=== PATIENT | male | born 1960 | race Caucasian/White ===

== ENCOUNTER 2016-12-20 11:20 | Inpatient (IN) | payer OTHER ==
[~2016-12-20] VITALS: Ht 167.6 cm; Wt 94.3 kg
[2016-12-20] VITALS (14 sets, daily range): BP systolic 114–159; BP diastolic 74–111; PULSE 66–97; TEMP 36.8–37.2; O2SAT 91–98; Ht 167.6 cm; Wt 94.3 kg
[2016-12-20] MEDS: SODIUM CHLORIDE 0.9% 1000ML 1,000 ML IV SCH ×2 (11:21→15:34)
[2016-12-20 11:53] LABS: BASO % 0.4 %; BASO ABS # 0.04 K/uL (0-0.2); COMPLETE YES; EOS % 1.1 %; HEMATOCRIT 46.6 % (42-52); IG% 0.3 %; LYMPH % 13.7 %; LYMPH ABS # 1.44 K/uL (1.2-3.4); MEAN CORPUSCULAR HEMOGLOBIN 31.4 pg (25-34); MEAN CORPUSCULAR HGB CONC 36.5 g/dl (32-36); MEAN PLATELET VOLUME 11.4 fL (7.4-10.4); MONO % 5.2 %; NEUT % 79.3 %; PLATELET COUNT 181 K/uL (130-400); RED BLOOD COUNT 5.42 M/uL (4.7-6.1); WHITE BLOOD COUNT 10.48 K/uL (4.8-10.8)
[2016-12-20 12:09] LABS: BLOOD UREA NITROGEN 12 mg/dl (7-18); BUN/CREATININE RATIO 11.5 (10-20); CALCIUM 9.5 mg/dl (8.5-10.1); CARBON DIOXIDE 29 mmol/L (21-32); CHLORIDE 102 mmol/L (98-107); GLUCOSE 129 mg/dl (70-99); INR 1.1 (0.9-1.1); POTASSIUM 3.9 mmol/L (3.5-5.1); PROTHROMBIN TIME (PATIENT) 11.7 SECONDS (9.0-12.0); SODIUM 137 mmol/L (136-145)
[2016-12-20 12:13] LABS: CKMB/CK RATIO 1.4 (0-3.0)
[2016-12-20] MEDS ORDERED: DILTIAZEM BOLUS / DRIP IV STA (12:55)
--- NOTE | 2016-12-20 13:02 | DIAGNOSTIC IMAGING REPORT ---
CT SCAN OF THE BRAIN WITHOUT IV CONTRAST CLINICAL HISTORY: Left-sided weakness. COMPARISON STUDY: No priors. TECHNIQUE: Unenhanced axial CT scan of the brain is performed from the vertex to the skull base. Automated dose control exposure was utilized. A dose lowering technique was utilized adhering to the principles of ALARA. CT DOSE: 537.48 mGy.cm FINDINGS: Brain parenchyma: There is a focus of left frontal encephalomalacia, likely related to remote infarct. There is no hemorrhage, mass effect, or evidence of acute territorial ischemia by CT criteria. Gonsalez-white matter is preserved. No extra-axial fluid collection is seen. Ventricles, sulci, cisterns: There is atherosclerotic calcification of the cavernous carotid arteries. Intracranial vasculature: The visualized intracranial vasculature at the skull base is normal in appearance. Calvarium: Unremarkable. Sinuses and mastoids: The visualized paranasal sinuses are clear. The mastoid air cells are well pneumatized. Orbits: The bony orbits are grossly intact. IMPRESSION: 1. There is no hemorrhage, mass effect, or evidence of acute territorial ischemia by CT criteria. 2. There is a focus of left frontal encephalomalacia, likely related to a remote infarct. Correlation clinical findings and the patient's medical history will be required. Electronically signed by: Nick López M.D. 12/20/2016 12:23 PM Dictated Date/Time: 12/20/2016 12:20 PM
--- NOTE | 2016-12-20 13:03 | DIAGNOSTIC IMAGING REPORT ---
SINGLE VIEW CHEST CLINICAL HISTORY: Strokelike symptoms. FINDINGS: An AP, portable, upright chest radiograph is obtained. No prior studies are available for comparison at the time of dictation. The cardiomediastinal silhouette is unremarkable. The lungs and pleural spaces are clear. No pneumothorax is seen. The bony thorax is grossly intact. IMPRESSION: No active disease in the chest. Electronically signed by: Nick López M.D. 12/20/2016 12:31 PM Dictated Date/Time: 12/20/2016 12:30 PM
[2016-12-20] MEDS ORDERED: HEPARIN 25000 UNIT/500 ML D5W ONE (13:07)
[2016-12-20] MEDS ORDERED: HEPARIN SOD 5000 UNIT/0.5 ML CARP ONE (13:08)
[2016-12-20] MEDS ORDERED: PHARMACIST DISCHARGE MED REC CONSULT PRN (13:15)
[2016-12-20] MEDS ORDERED: ALUMINUM/MAGNESIUM/SIMETH (MAALOX MAX) 30 ML UDC PO PRN (13:15)
[2016-12-20] MEDS ORDERED: ONDANSETRON INJ 2 MG/ML 2 ML VIAL IV PRN (13:15)
[2016-12-20] MEDS ORDERED: MAGNESIUM HYDROXIDE SUSP 30 ML UDC PO PRN (13:15)
[2016-12-20] MEDS ORDERED: DILTIAZEM HCL 5 MG/ML 5 ML VIAL IV SCH (13:15)
[2016-12-20] MEDS ORDERED: ACETAMINOPHEN 325 MG TAB PO PRN (13:15)
[2016-12-20] MEDS ORDERED: POLYETHYLENE (MIRALAX) 17 GM PACK PO PRN (13:15)
[2016-12-20] MEDS ORDERED: DILTIAZEM HCL INJ 125 MG in DEXTROSE 5% 100ML IV PRN ×2 (13:15→16:15)
--- NOTE | 2016-12-20 13:26 | History and Physical ---
History & Physical Date & Time of Service: Dec 20, 2016 at 13:24 Chief Complaint: Primary Care Physician: No Doctor, Assigned History of Present Illness Source: patient 56 y/o M who denies any significant medical history although he has not seen a physician in several years. The pt was at work when he became light-headed and then per his coworkers, exhibited slurred speech and a L facial droop. He describes L upper extremity weakness as well. His symptoms resolved after a few minutes and he is asymptomatic on arrival to the ER. Initial EKG reveals AF with a rate of ~115. He was not aware of palpitations and did not c/o any CP /SOB. A CT head indicates that he suffered a remote frontal CVA - he does not recall any associated symptoms. Past Medical/Surgical History NO known medical history Family History Atrial fibrillation Both parents due to heart disease. Social History Occasional ETOH - works at a [employer] Smoking Status: Never Smoker Allergies Coded Allergies: No Known Allergies (Unverified , 12/20/16) Home Medications No Active Prescriptions or Reported Meds Review of Systems Constitutional: No fever, No chills Eyes: No worsening of vision, No eye pain ENT: No hearing loss, No nasal symptoms Respiratory: No cough, No sputum, No wheezing Cardiovascular: No chest pain, No orthopnea, No PND Abdomen: No pain, No nausea, No vomiting Musculoskeletal: No joint pain Genitourinary - Male: No hematuria, No dysuria Neurologic: + weakness (L sided ), + problem reported (slurred speech, facial droop reported ), No memory loss Psychiatric: No depression symptoms Endocrine: No fatigue Hematologic / Lymphatic: No abnormal bleeding/bruising Allergic / Immunologic: No environmental allergies Physical Exam Vital Signs Date Time Temp Pulse Resp B/P (MAP) Pulse Ox O2 Delivery O2 Flow Rate FiO2 12/20/16 12:40 119 20 160/117 96 Room Air 12/20/16 11:33 119 12/20/16 11:30 36.6 111 20 138/111 98 Room Air General Appearance: WD/WN, no apparent distress, + pertinent finding (Pleasant , overweight, middle-aged male - no distress ) Head: normocephalic Eyes: normal inspection ENT: normal ENT inspection, pharynx normal Neck: supple, no JVD Respiratory/Chest: chest non-tender, lungs clear Cardiovascular: no gallop, no JVD, no murmur, + tachycardia, + irregularly irregular Abdomen/GI: normal bowel sounds, non tender, soft Back: normal inspection, no CVA tenderness 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, alert, normal mood/affect, normal reflexes, oriented x 3, + pertinent finding (Motor exam reveals a slight LUE pronator drift) Skin: normal color, warm/dry Diagnostics Laboratory Results Results Past 24 Hours Test 12/20/16 11:34 12/20/16 11:39 12/20/16 11:42 12/20/16 13:12 Range/Units White Blood Count 10.48 4.8-10.8 K/uL Red Blood Count 5.42 4.7-6.1 M/uL Hemoglobin 17.0 14.0-18.0 g/dL Hematocrit 46.6 42-52 % Mean Corpuscular Volume 86.0 80-100 fL Mean Corpuscular Hemoglobin 31.4 25-34 pg Mean Corpuscular Hemoglobin Concent 36.5 32-36 g/dl Platelet Count 181 130-400 K/uL Mean Platelet Volume 11.4 7.4-10.4 fL Neutrophils (%) (Auto) 79.3 % Lymphocytes (%) (Auto) 13.7 % Monocytes (%) (Auto) 5.2 % Eosinophils (%) (Auto) 1.1 % Basophils (%) (Auto) 0.4 % Neutrophils # (Auto) 8.31 1.4-6.5 K/uL Lymphocytes # (Auto) 1.44 1.2-3.4 K/uL Monocytes # (Auto) 0.54 0.11-0.59 K/uL Eosinophils # (Auto) 0.12 0-0.5 K/uL Basophils # (Auto) 0.04 0-0.2 K/uL RDW Standard Deviation 39.6 36.4-46.3 fL RDW Coefficient of Variation 12.6 11.5-14.5 % Immature Granulocyte % (Auto) 0.3 % Immature Granulocyte # (Auto) 0.03 0.00-0.02 K/uL Prothrombin Time 11.7 9.0-12.0 SECONDS Prothromb Time International Ratio 1.1 0.9-1.1 Activated Partial Thromboplast Time 25.2 21.0-31.0 SECONDS Partial Thromboplastin Ratio 1.0 Sodium Level 137 136-145 mmol/L Potassium Level 3.9 3.5-5.1 mmol/L Chloride Level 102 98-107 mmol/L Carbon Dioxide Level 29 21-32 mmol/L Anion Gap 6.0 3-11 mmol/L Blood Urea Nitrogen 12 7-18 mg/dl Creatinine 1.00 0.60-1.40 mg/dl Est Creatinine Clear Calc Drug Dose 91.4 ml/min Estimated GFR () 97.1 Estimated GFR (Non- 83.8 BUN/Creatinine Ratio 11.5 10-20 Random Glucose 129 70-99 mg/dl Calcium Level 9.5 8.5-10.1 mg/dl Total Creatine Kinase 95 39-308 U/L Creatine Kinase MB 1.3 0.5-3.6 ng/ml Creatine Kinase MB Ratio 1.4 0-3.0 Troponin I < 0.015 0-0.045 ng/ml Bedside Glucose 125 70-99 mg/dl Bedside Prothrombin Time INR 1.2 0.9-1.[address] head: 1. There is no hemorrhage, mass effect, or evidence of acute territorial ischemia by CT criteria. 2. There is a focus of left frontal encephalomalacia, likely related to a remote infarct. Correlation clinical findings and the patient's medical history will be required. Impression Assessment and Plan 56 y/o M who denies any significant medical history although he has not seen a physician in several years. The pt was at work when he became light-headed and then per his coworkers, exhibited slurred speech and a L facial droop. He describes L upper extremity weakness as well. His symptoms resolved after a few minutes and he is asymptomatic on arrival to the ER. Initial EKG reveals AF with a rate of ~115. He was not aware of palpitations and did not c/o any CP /SOB. A CT head indicates that he suffered a remote frontal CVA - he does not recall any associated symptoms. 1) TIA - likely associated with AF - he was placed on IV Heparin in the ER which we will continue. He will receive ASA and a Statin. We are pndng an MRI/ MRI head/neck and a neurology consult. 2) AF - placed on rate control and anticoagulation - Heparin, Cardizem Full code - full dose Heparin Total time for this admit including review of labs, records, EKG, imaging - discussion with pt and ER attending - 38 min Level of Care Telemetry Resuscitation Status FULL RESUSCITATION VTE Prophylaxis VTE Risk Assessment Done? Y/N: Yes Risk Level: Moderate Given or contraindicated: Other Anticoagulation
[2016-12-20 14:13] LABS: ESTIMATED AVERAGE GLUCOSE 123 mg/dl; HA1C FLAG Normal (Normal)
[2016-12-20] MEDS ORDERED: DILTIAZEM BOLUS / DRIP IV SCH (14:33)
--- NOTE | 2016-12-20 17:00 | EMERGENCY ROOM VISIT NOTE ---
History Report prepared by Doris: Shu Blevins Under the Supervision of: Dr. Sunny Aguilera D.O. 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 The patient works at a [employer] and states that he was at work when he started to feel " fuzzy in my head." He then began feeling weak. He states that co-workers noticed a left-sided facial droop and slurred speech. The patient reports left arm weakness. He tried to open his water bottle to get a drink and was unable to do it. He denies weakness or numbness in his lower extremities. Pt denies headache, change in vision, fevers, chest pain, shortness of breath, nausea, vomiting, diarrhea, pain with urination, and melena. He states that his symptoms completely resolved by the time EMS arrived on scene. He was brought to the ED by ambulance for further evaluation. EMS noted the patient to be in a- fib en route. The patient states that he has not been to the doctor in 20-30 years. 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 Review of Systems See HPI for pertinent positives & negatives. A total of 10 systems reviewed and were otherwise negative. Past Medical & Surgical Medical Problems: (1) Atrial fibrillation with rapid ventricular response (2) No significant active problems (3) TIA (transient ischemic attack) Family History Atrial fibrillation Social History Smoking Status: Unknown if Ever Smoked Occupation Status: employed Current/Historical Medications No Active Prescriptions or Reported Meds Allergies Coded Allergies: No Known Allergies (Unverified , 12/20/16) Physical Exam Vital Signs Date Time Temp Pulse Resp B/P (MAP) Pulse Ox O2 Delivery O2 Flow Rate FiO2 12/20/16 13:22 113 20 150/109 98 Room Air 12/20/16 12:40 119 20 160/117 96 Room Air 12/20/16 11:33 119 12/20/16 11:30 36.6 111 20 138/111 98 Room Air Physical Exam GENERAL: alert, sitting up in bed, well appearing, well nourished, no distress, non-toxic EYE EXAM: normal conjunctiva, PERRL and EOM's intact OROPHARYNX: no exudate, no erythema, lips, buccal mucosa, and tongue normal and mucous membranes are moist NECK: supple, no nuchal rigidity, no adenopathy, non-tender LUNGS: Clear to auscultation. Normal chest wall mechanics HEART: Tachycardic and irregularly irregular, no murmurs, S1 normal and S2 normal ABDOMEN: abdomen soft, non-tender, normo-active bowel sounds, no masses, no rebound or guarding. BACK: Back is symmetrical on inspection and there is no deformity, no midline tenderness, no CVA tenderness. SKIN: no rashes and no bruising UPPER EXTREMITIES: upper extremities are grossly normal. LOWER EXTREMITIES: No pitting edema. NEURO EXAM: Normal sensorium, cranial nerves II-XII intact, normal speech, no weakness of arms, no weakness of legs. No drift. Finger to nose intact. Gross sensation intact. Rapid alternating movements of upper extremities intact. Medical Decision & Procedures ER Provider Diagnostic Interpretation: Radiology results as stated below per my review and the radiologist's interpretation: CT SCAN OF THE BRAIN WITHOUT IV CONTRAST CLINICAL HISTORY: Left-sided weakness. COMPARISON STUDY: No priors. TECHNIQUE: Unenhanced axial CT scan of the brain is performed from the vertex to the skull base. Automated dose control exposure was utilized. A dose lowering technique was utilized adhering to the principles of ALARA. CT DOSE: 537.48 mGy.cm FINDINGS: Brain parenchyma: There is a focus of left frontal encephalomalacia, likely related to remote infarct. There is no hemorrhage, mass effect, or evidence of acute territorial ischemia by CT criteria. Gonsalez-white matter is preserved. No extra-axial fluid collection is seen. Ventricles, sulci, cisterns: There is atherosclerotic calcification of the cavernous carotid arteries. Intracranial vasculature: The visualized intracranial vasculature at the skull base is normal in appearance. Calvarium: Unremarkable. Sinuses and mastoids: The visualized paranasal sinuses are clear. The mastoid air cells are well pneumatized. Orbits: The bony orbits are grossly intact. IMPRESSION: 1. There is no hemorrhage, mass effect, or evidence of acute territorial ischemia by CT criteria. 2. There is a focus of left frontal encephalomalacia, likely related to a remote infarct. Correlation clinical findings and the patient's medical history will be required. Electronically signed by: Nick López M.D. 12/20/2016 12:23 PM Dictated Date/Time: 12/20/2016 12:20 PM SINGLE VIEW CHEST CLINICAL HISTORY: Strokelike symptoms. FINDINGS: An AP, portable, upright chest radiograph is obtained. No prior studies are available for comparison at the time of dictation. The cardiomediastinal silhouette is unremarkable. The lungs and pleural spaces are clear. No pneumothorax is seen. The bony thorax is grossly intact. IMPRESSION: No active disease in the chest. Electronically signed by: Nick López M.D. 12/20/2016 12:31 PM Dictated Date/Time: 12/20/2016 12:30 PM Laboratory Results 12/20/16 11:34 Red Blood Count 5.42, Mean Corpuscular Volume 86.0, Mean Corpuscular Hemoglobin 31.4, Mean Corpuscular Hemoglobin Concent 36.5, Mean Platelet Volume 11.4, Neutrophils (%) (Auto) 79.3, Lymphocytes (%) (Auto) 13.7, Monocytes (%) (Auto) 5.2, Eosinophils (%) (Auto) 1.1, Basophils (%) (Auto) 0.4, Neutrophils # (Auto) 8.31, Lymphocytes # (Auto) 1.44, Monocytes # (Auto) 0.54, Eosinophils # (Auto) 0.12, Basophils # (Auto) 0.04 12/20/16 11:34 Test 12/20/16 11:34 12/20/16 11:39 12/20/16 11:42 White Blood Count 10.48 K/uL (4.8-10.8) Red Blood Count 5.42 M/uL (4.7-6.1) Hemoglobin 17.0 g/dL (14.0-18.0) Hematocrit 46.6 % (42-52) Mean Corpuscular Volume 86.0 fL (80-100) Mean Corpuscular Hemoglobin 31.4 pg (25-34) Mean Corpuscular Hemoglobin Concent 36.5 g/dl (32-36) Platelet Count 181 K/uL (130-400) Mean Platelet Volume 11.4 fL (7.4-10.4) Neutrophils (%) (Auto) 79.3 % Lymphocytes (%) (Auto) 13.7 % Monocytes (%) (Auto) 5.2 % Eosinophils (%) (Auto) 1.1 % Basophils (%) (Auto) 0.4 % Neutrophils # (Auto) 8.31 K/uL (1.4-6.5) Lymphocytes # (Auto) 1.44 K/uL (1.2-3.4) Monocytes # (Auto) 0.54 K/uL (0.11-0.59) Eosinophils # (Auto) 0.12 K/uL (0-0.5) Basophils # (Auto) 0.04 K/uL (0-0.2) RDW Standard Deviation 39.6 fL (36.4-46.3) RDW Coefficient of Variation 12.6 % (11.5-14.5) Immature Granulocyte % (Auto) 0.3 % Immature Granulocyte # (Auto) 0.03 K/uL (0.00-0.02) Prothrombin Time 11.7 SECONDS (9.0-12.0) Prothromb Time International Ratio 1.1 (0.9-1.1) Activated Partial Thromboplast Time 25.2 SECONDS (21.0-31.0) Partial Thromboplastin Ratio 1.0 Anion Gap 6.0 mmol/L (3-11) Est Creatinine Clear Calc Drug Dose 91.4 ml/min Estimated GFR () 97.1 Estimated GFR (Non- 83.8 BUN/Creatinine Ratio 11.5 (10-20) Estimated Average Glucose 123 mg/dl Hemoglobin A1c 5.9 % (4.5-5.6) Calcium Level 9.5 mg/dl (8.5-10.1) Total Creatine Kinase 95 U/L (39-308) Creatine Kinase MB 1.3 ng/ml (0.5-3.6) Creatine Kinase MB Ratio 1.4 (0-3.0) Troponin I < 0.015 ng/ml (0-0.045) Hepatitis C Antibody Screen NEG (NEG) Bedside Glucose 125 mg/dl (70-99) Bedside Prothrombin Time INR 1.2 (0.9-1.1) Laboratory results per my review. Medications Administered Medications (Trade) Dose Ordered Sig/[place] Route Start Time Stop Time Status Last Admin Dose Admin Sodium Chloride 1,000 ml @ 50 mls/hr Q20H IV 12/20/16 11:21 01/19/17 11:20 12/20/16 15:34 50 MLS/HR Diltiazem HCl (Cardizem Bolus / Drip) 1 ea NOW STAT IV 12/20/16 12:55 12/20/16 12:56 DC 12/20/16 12:55 1 EA Diltiazem HCl (Cardizem Inj) 10 mg TODAY@1315 IV 12/20/16 13:15 12/20/16 13:16 DC 12/20/16 13:17 10 MG Diltiazem HCl 125 mg/Dextrose 125 ml @ 0 mls/hr Q0M PRN IV 12/20/16 13:15 12/20/16 16:04 DC 12/20/16 13:15 5 MLS/HR Heparin Sodium/ Dextrose (Heparin 25,000 Unit/500ml D5W) 25,000 unit STK-MED ONCE .ROUTE 12/20/16 13:07 12/20/16 13:08 DC 12/20/16 13:14 25,000 UNIT Heparin Sodium (Porcine) (Heparin Sq 5000 Unit/0.5ml) 5,000 unit STK-MED ONCE .ROUTE 12/20/16 13:08 12/20/16 13:09 DC 12/20/16 13:16 5,000 UNIT ECG Indication: altered mental status Rate (beats per minute): 113 Rhythm: atrial fibrillation (RVR) Findings: PVC, other (normal axis) Comparison ECG Date: no prior available ED Course ED COURSE: Vital signs were reviewed and showed hypertensive, tachycardic. The patients medical record was reviewed The above diagnostic studies were performed and reviewed. ED treatments and interventions as stated above. 1121: The patient was evaluated in room A4A. A complete history and physical examination was performed. 1121: NSS 1000 ml @ 50 mls/hr IV 1223: I reassessed the patient and updated him on his results. 1255: Diltiazem HCl Bolus/drip IV 1301: I spoke with Dr. Torres. We discussed the patient's case. The patient will be evaluated by the [facility] for further management. 1307: Heparin bolus/drip IV 1308: Upon reevaluation, the patient is doing well. I discussed my findings with the patient and he understands and agrees with the treatment plan. Based on the patients age, coexisting illnesses, exam and lab findings the decision to treat as an inpatient was made. The patient remained stable while under my care. The patient will be evaluated for further management. Medical Decision Differential Diagnosis includes but is not limited to ischemic Stroke, hemorrhagic stroke, bells palsy, mass, neoplasm, migraine headache, seizure, subarachnoid hemorrhage, TIA, and transient global amnesia. Patient is a 56-year-old male who presents to the ER via EMS following left upper extremity weakness, slurred speech, left-sided facial droop which completely resolved. Patient is carefully neurologically intact on my exam. EKG does show A. fib with RVR. He is taking the CAT scan which showed no acute bleed. NIH stroke scale was 0. Following the negative CT head. Patient was placed on a Cardizem drip and bolus. He was also given heparin drip and bolus as I favor his TIA is likely secondary to embolic disease. Patient had no bleeding risk factors which included hemoptysis, hematemesis, hematuria, recent surgeries, recent trauma, head bleeds or hemorrhagic strokes. Patient family were updated at bedside. He was admitted to internal medicine with a TIA and new-onset A. fib with RVR. Medication Reconcilliation Current Medication List: was personally reviewed by me Blood Pressure Screening Patient's blood pressure: Elevated blood pressure Blood pressure disposition: Elevated BP felt to be situational Consults Time Called: 1257 Consulting Physician: Dr. Torres Returned Call: [address] Torres. We discussed the patient's case. The patient will be evaluated by the [facility] for further management. Impression Primary Impression: Atrial fibrillation with rapid ventricular response Additional Impression: TIA (transient ischemic attack) Critical Care I have personally spent 35 minutes of critical care time in the direct management of this patient. This includes bedside care, interpretation of diagnostic studies, and testing, discussion with consultants, patient, and family members, and other required patient management activities. This 35 minutes is in excess of all separately billable procedures. Scribe Attestation The scribe's documentation has been prepared under my direction and personally reviewed by me in its entirety. I confirm that the note above accurately reflects all work, treatment, procedures, and medical decision making performed by me. Departure Information Dispostion Being Evaluated By Hospitalist Prescriptions No Active Prescriptions or Reported Meds Stroke History Time Last Known Well 1000 Stroke t-PA Criteria Reviewed Does NOT meet criteria for t-PA Reason t-PA Not Given Treatment not indicated Strict Exclusion Criteria Complete resolution of symptoms (NI Problem Qualifiers Additional Impression: TIA (transient ischemic attack) Transient cerebral ischemia type: unspecified Qualified Codes: G45.9 - Transient cerebral ischemic attack, unspecified
--- NOTE | 2016-12-20 17:42 | CONSULTATION REPORT ---
DATE OF CONSULTATION: 12/20/[address] Ernie Torres. 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 He had a closed head injury with brief loss of consciousness about 10 years ago during which he struck the back of his head but did not seek medical care at that time. He is not aware of any medical problems, but then he has not been monitored for any. He presented today after having an event at work when he became lightheaded and then his coworkers noted slurred speech, left facial droop, left upper extremity weakness which he apparently was aware of as well. After a few minutes, everything resolved. He was asymptomatic, but he was brought to the Emergency Room where an initial EKG revealed atrial fibrillation with a rate of about 115 and a CAT scan of the head showed a remote frontal CVA on the left. It is not known whether he has underlying medical problems such as dyslipidemia, hypertension but he certainly has atrial fibrillation, at least according to the EKG, although he is unaware of any symptoms. He takes no medications. ALLERGIES: He denies any drug allergies. SOCIAL HISTORY: Nonsmoker and minimal consumer of etoh FAMILY HISTORY: Reveals that both parents of heart disease. REVIEW OF SYSTEMS: Reveals no significant change in weight. No fevers, sweats, chills. No recent hospitalizations or visits to Emergency Rooms. He has had no new issues referable to head, eyes, ears, nose and throat. No known cardiovascular, pulmonary, gastrointestinal, genitourinary, or musculoskeletal issues. Neurologically, his history includes only the remote head injury with brief loss of consciousness and no real followup. PHYSICAL EXAMINATION: VITAL SIGNS: On exam, his blood pressure was 160/117, pulse was 119, irregularly irregular, respirations were 20. He had O2 saturations of 96 on room air and he was afebrile. GENERAL: He was moderately overnourished. He was pleasant, did not appear to be in any acute distress. NECK: No carotid bruits were heard. LUNGS: Clear. HEART: Had an irregularly irregular rhythm without murmur. ABDOMEN: Soft, nontender. EXTREMITIES: Free of edema. Pulses were good and symmetrical. There were no joint deformities, cyanosis, clubbing, etc. NEUROLOGIC: On my examination today, neurologically he is awake, alert, oriented in 3 spheres. I think he does have a slight slurring of his speech, but he has got a partial plate and the family members who are around do not think there is anything unique about his speech pattern today. There is no word finding issues. He has no head or eye deviation. One could argue there is a very slight left facial asymmetry, but this is marginal at best. He has grossly normal facial sensation. There is no neglect to bilaterally presented visual stimuli. There is no field cut. I do not hear any carotid bruits. There may be a minor pronation of the left hand when it is held extended and eyes closed, but there is no real loss of facility. No cerebellar dysmetria, no reflex asymmetry. Toes are downgoing. Geena signs are seen. Strength testing is normal. Sensory examination including testing for neglect is normal to all primary modalities including vibration, light touch, and temperature. LABORATORY STUDIES: Thus far pretty unremarkable. He has a normal blood count. He may have some slight microcytosis. His hemoglobin A1c is slightly up at 5.9. His glucose is 125, which is slightly up. CPK is normal, we do not have results of the cholesterol. Pending studies include MRI/MRA of the [place] and the intracranial vasculature and an echocardiogram and a cardiology consultation. Now he is appropriately on heparin and he is going to be observed. We will get the diagnostic studies. We may or may not see a completed infarct in the right hemisphere. I suspect we may see a smaller area or we may even see evidence that he had an embolic shower. I am suspicious that the area we see in the left frontal lobe on CAT scan may have been a silent old embolic infarct from undetected atrial fibrillation in the past. Whatever the case, he is going to need risk factor management, policy regarding attempts to convert him into sinus rhythm and if not, an anticoagulation policy and at this point, neurology is just going to follow along and will yield to cardiology's recommendations as I suspect this was an embolic event, which luckily has left not much clinically on exam. CRICKET
[2016-12-20] MEDS ORDERED: GADAVIST IV PRN (17:45)
--- NOTE | 2016-12-20 17:46 | DIAGNOSTIC IMAGING REPORT ---
MRA NECK COMBO HISTORY: Mental status change Stroke TECHNIQUE: Ojis-ge-osderl and gadolinium-enhanced MRA of the neck was performed both before and after the intravenous administration of contrast. All measurements were calculated based on NASCET criteria. COMPARISON STUDY: None. FINDINGS: The aortic arch and proximal great vessels are widely patent. There is no significant stenosis, occlusion, or dissection identified within the bilateral common carotid, internal carotid, or vertebral arteries. Minimal plaque formation bilaterally IMPRESSION: No significant stenosis, occlusion, or dissection identified within the carotid or vertebral arteries. Minimal plaque formation The above report was generated using voice recognition software. It may contain grammatical, syntax or spelling errors. Electronically signed by: Salvatore Oro M.D. 12/20/2016 5:45 PM Dictated Date/Time: 12/20/2016 5:42 PM
--- NOTE | 2016-12-20 17:49 | DIAGNOSTIC IMAGING REPORT ---
MRA HEAD WITHOUT CONTRAST HISTORY: Stroke - Attention to [place] TECHNIQUE: 3-D [id number] MRA of the brain was performed without contrast. COMPARISON STUDY: None. FINDINGS: Visualized intracranial internal carotid arteries, distal vertebral arteries, and basilar artery are widely patent. There is no significant stenosis, occlusion, or aneurysm seen within the bilateral ACAs, MCAs, or turbine operator. Minimal scattered plaque formation throughout. No significant stenosis. IMPRESSION: No significant stenosis, occlusion, or aneurysm within the [place]. Minimal scattered plaque formation. No significant stenosis. The above report was generated using voice recognition software. It may contain grammatical, syntax or spelling errors. Electronically signed by: Salvatore Oro M.D. 12/20/2016 5:48 PM Dictated Date/Time: 12/20/2016 5:45 PM
--- NOTE | 2016-12-20 17:51 | DIAGNOSTIC IMAGING REPORT ---
BRAIN WITHOUT CONTRAST HISTORY: 56 years-old Male Stroke acute strokelike symptoms. Follow-up study. Acute slurred speech and confusion. COMPARISON: CT head of same day TECHNIQUE: Multiplanar multisequence MRI of the brain was obtained without contrast. FINDINGS: There is a 1.2 x 0.9 cm focus of restricted diffusion within the posterior right frontal lobe at the level of the centrum semiovale with decreased signal on the ADC map and no significant increased T2/FLAIR signal compatible with acute infarction. There is no associated hemorrhage or significant mass effect. Additionally, there is a 1.2 x 0.5 cm cortically-based area of restricted diffusion involving the posterior right frontal lobe at the level of the centrum semiovale just inferiorly and laterally to the previously mentioned infarction which demonstrates slightly increased FLAIR signal within this distribution. Encephalomalacia within the left frontal lobe from remote infarction is again seen with moderate gliosis within this distribution. Scattered foci of periventricular and subcortical white matter T2 prolongation are compatible with chronic microvascular ischemic changes. No intracranial hemorrhage, midline shift, hydrocephalus or intracranial mass identified. No cerebellar tonsillar herniation. The major flow voids at the skull base appear normal. Trace right mastoid effusion. Paranasal sinuses are generally clear. IMPRESSION: 1. There are two small acute infarctions involving the right frontal lobe at the level of the centrum semiovale as described above. 2. No intracranial hemorrhage or significant mass effect identified. 3. Remote infarction of the left frontal lobe with associated gliosis. 4. Background mild chronic microvascular ischemic changes. The above report was generated using voice recognition software. It may contain grammatical, syntax or spelling errors. Electronically signed by: Mathew Silva M.D. 12/20/2016 5:50 PM Dictated Date/Time: 12/20/2016 5:41 PM
[2016-12-20 18:59] LABS: PARTIAL THROMBOPLASTIN RATIO 1.4
[2016-12-20 19:26] LABS: MAGNESIUM 2.1 mg/dl (1.8-2.4); THYROID STIMULATING HORMONE 1.68 uIu/ml (0.300-4.500)
[2016-12-20] MEDS ORDERED: HEPARIN IV BOLUS 4,500 UNIT in SYRINGE 0 ML IV ONE (19:30)
[2016-12-20] MEDS: HEPARIN 25,000 UNIT/500ML D5W 500 ML IV PRN (19:34)
--- NOTE | 2016-12-20 20:16 | CARDIOLOGY CONSULTATION ---
DATE OF CONSULTATION: 12/20/2016 ATTENDING AND REFERRING PHYSICIAN: Ernie Torres MD PRIMARY PHYSICIAN: None. CONSULTATION: Armando Neff MD HISTORY OF PRESENT ILLNESS: The patient is a 56-year-old white male. Prior to today, he had not been seen by any health care provider for at least 25 years. He has never been admitted to the hospital previously. He denies any past medical history or surgical history. At the time of admission, he was on no medications. No known allergies. The patient works at a [employer]. Today while at work, he developed confusion, left facial droop, slurred speech, and left upper extremity weakness. The symptoms resolved within several minutes. One of his coworkers called 911 and he was brought emergently to the Emergency Department at [facility]. On arrival to the Emergency Department, he was documented to be in atrial fibrillation with rapid ventricular response of 113 beats per minute. He denied any cardiac symptoms. Specifically, no palpitations, dyspnea, or chest pain. He was started on intravenous diltiazem and intravenous heparin. He underwent a head CT scan, which revealed left frontal encephalomalacia, which is thought to be related to a remote infarct. His chest x-ray revealed no evidence of heart failure or infiltrate. Chest x-ray reviewed by me. Neck and head MRA revealed no obstructive disease in the carotid system or in the [place]. Brain MRI revealed 2 small acute infarctions involving the right frontal lobe. No intracranial hemorrhage or mass effect. Remote infarction of left frontal lobe with associated gliosis. Mild chronic microvascular ischemic changes were also noted. The patient has since been admitted to the telemetry unit. The patient was seen by me in the telemetry unit. The patient states that recently, he has been feeling well until today. His exercise tolerance and stamina had been stable. He denies any unusual malaise or fatigue. No dyspnea at rest or with normal activities. No orthopnea or PND. No palpitations, lightheadedness, syncope, or peripheral edema. Prior to today, he denies any neurovascular type complaints. No symptoms suggestive of hyperthyroidism. His appetite is stable. No weight loss. No heat intolerance. No excessive sweating. Normal daily bowel movements. PAST MEDICAL HISTORY: The patient denies any medical history. He denies any history of hypertension, dyslipidemia, or diabetes mellitus. FAMILY HISTORY: Sister had a congenital heart defect. She has a pacemaker. He had a total of 5 siblings. One from noncardiac reasons. His father had aortic valvular disease and coronary artery disease. His mother had a history of atrial fibrillation in an older age. SOCIAL HISTORY: The patient is single. No children. He works at a [employer]. He has never smoked cigarettes. Occasional use of alcohol. This is only 1-2 alcoholic beverages a week. REVIEW OF SYSTEMS: 1. As above. 2. Partial upper dentures. 3. No pulmonary complaints. 4. No GI complaints. 5. Other than the episode of slurred speech today, no other HEENT complaints. No visual complaints. 6. Nocturia 1 time per night. No other urinary type complaints. 7. No myalgias or muscle weakness other than the left arm weakness earlier today. 8. No bleeding complaints. 9. No skin rash type complaints. CURRENT MEDICATIONS: Atorvastatin 40 mg daily, aspirin 81 mg daily, intravenous diltiazem, intravenous heparin, and several p.r.n. medications. ALLERGIES: No known drug allergies. PHYSICAL EXAMINATION: GENERAL: The patient is sitting in a chair by his bedside. He appears to be in no distress. VITAL SIGNS: Most recent vital signs at 06:00 p.m. with oral temperature 37.2, pulse 86, blood pressure 159/99, and pulse oximetry on room air 94%. His blood pressure on arrival to the Emergency Department was 138/111. Highest blood pressure recorded during this admission was 160/117. This was in the Emergency Department. GENERAL APPEARANCE: Shows him to be in no distress. HEAD: Normal. EYES: Pupils equal and round. Anicteric. Conjunctivae normal. No xanthelasma. NECK: No jugular venous distension. Carotids 2/2 bilaterally. Normal upstroke. No bruits. LUNGS: Clear. No rales or wheezes. HEART: Irregularly irregular. S1 and S2 normal. No S3. 1/6 systolic murmur in the left upper sternal border. No diastolic murmur or rub. PMI normal. No lifts or heaves. ABDOMEN: Soft. Nontender. No palpable masses or organomegaly. No bruits. Normal bowel sounds. EXTREMITIES: No pretibial edema. No cyanosis or clubbing. PULSES: Distal pulses in all extremities palpable. NEUROLOGICAL: Alert and oriented x3. Motor grossly intact. PSYCHIATRIC: Affect normal. DATA: Chest x-ray and brain imaging as documented above. Electrocardiogram in the Emergency Department with atrial fibrillation with ventricular response at 113 beats per minute. Premature ventricular beat versus aberrantly conducted beats. Nonspecific T-wave abnormalities. LABORATORY DATA: Today with WBC 10.48, hemoglobin 17.0, hematocrit 46.6, and platelet count 181. Baseline INR 1.2. PTT 25.2. Metabolic profile -- sodium 137, potassium 3.9, chloride 102, carbon dioxide 29, BUN 12, creatinine 1.0, and random glucose 129. Hemoglobin A1c 5.9. Troponin I less than 0.015. CK total 95 with MB of 1.3. ASSESSMENT: 1. Evidence of acute cerebral infarct on MRI of the brain today. The patient had a transient left facial droop, slurred speech, and left upper extremity weakness. The symptoms all appeared to have since resolved. Brain imaging also revealed evidence of an old left-sided infarct. 2. Documentation of atrial fibrillation on arrival to the Emergency Department. The patient has not seen a healthcare provider in at least 25 years. Thus, the duration of the atrial fibrillation is unknown. Of note is that he had no associated cardiac symptoms with the atrial fibrillation today. Specifically, no palpitations. No unusual malaise or fatigue. No unusual dyspnea. 3. Hypertension. Suspect that the patient has longstanding hypertension. This could be one of the etiologies for developing atrial fibrillation. 4. No symptoms suggestive of hyperthyroidism. 5. Potassium level normal. 6. No anginal type complaints. Electrocardiogram without any ischemic ST or T-wave abnormalities. Troponin I and CK-MB negative for evidence of myocardial injury. 7. No signs or symptoms of congestive heart failure. 8. Elevated hemoglobin A1c. RECOMMENDATIONS: 1. An echocardiogram has been ordered. We will assess for any underlying significant valve disease. Assess ventricular function. Assess left ventricular wall thickness. If he has significant left ventricular hypertrophy, it would suggest that his hypertension has been longstanding. If his atria are significantly enlarged, this would suggest that the atrial fibrillation has been longstanding. If his atrial dimensions are normal or only mildly increased, then the atrial fibrillation may be of briefer duration. Enlarged atria would suggest that the atrial fibrillation has been present for at least several months or greater. 2. Continue intravenous heparin and diltiazem tonight. 3. Tomorrow, he could be switched to a novel oral anticoagulant as well as oral diltiazem. 4. If diltiazem will help control his ventricular response, it could also help control his blood pressure. If inadequate blood pressure control with diltiazem alone, would add an SOCRATES inhibitor to his medical regimen. 5. Continue aspirin. 6. Check lipid profile, TSH, magnesium, and liver function test. Prior to placing him on a novel oral anticoagulant, need to know his liver functions. 7. Based on the results of the echocardiogram, would then make a decision regarding whether he should undergo any attempted electrical cardioversion in the future. Would not perform electrical cardioversion until he has been anticoagulated for at least 4 weeks. Even if he underwent a successful electrical cardioversion, he would need to remain on long-term oral anticoagulation therapy. He already has evidence of strokes on both sides of his brain. Having an evidence of an old stroke would imply that his atrial fibrillation has been of longstanding duration. On imaging of his cerebral vasculature there are no significant abnormalities noted. His [id number] score 4. This is a high risk category for thromboembolic event from atrial fibrillation. The yearly risk of stroke with this risk score is 4%. Antithrombotic recommendation is oral anticoagulation. Thank you for asking us to see this patient in cardiology consultation. CRICKET
[2016-12-21] VITALS (7 sets, daily range): BP systolic 112–147; BP diastolic 68–103; PULSE 67–95; TEMP 36.4–37.2; O2SAT 95–97
[2016-12-21 02:18] LABS: BASO % 0.4 %; BASO ABS # 0.04 K/uL (0-0.2); COMPLETE YES; EOS % 1.5 %; HEMATOCRIT 42.2 % (42-52); IG% 0.2 %; LYMPH % 25.4 %; LYMPH ABS # 2.56 K/uL (1.2-3.4); MEAN CELL VOLUME 86.7 fL (80-100); MEAN CORPUSCULAR HEMOGLOBIN 30.4 pg (25-34); MEAN CORPUSCULAR HGB CONC 35.1 g/dl (32-36); MEAN PLATELET VOLUME 11.8 fL (7.4-10.4); MONO % 5.9 %; NEUT % 66.6 %; PLATELET COUNT 174 K/uL (130-400); RED BLOOD COUNT 4.87 M/uL (4.7-6.1); WHITE BLOOD COUNT 10.07 K/uL (4.8-10.8)
[2016-12-21 02:33] LABS: PARTIAL THROMBOPLASTIN RATIO 1.8
[2016-12-21 02:34] LABS: BUN/CREATININE RATIO 15.1 (10-20); CALCIUM 8.7 mg/dl (8.5-10.1); CREATININE 0.96 mg/dl (0.60-1.40); POTASSIUM 3.5 mmol/L (3.5-5.1)
[2016-12-21 02:37] LABS: CHOLESTEROL/HDL RATIO 3.5
[2016-12-21] MEDS ORDERED: HEPARIN IV BOLUS 3,000 UNIT in SYRINGE 0 ML IV STA (03:04)
[2016-12-21] MEDS ORDERED: NURSING VERBAL MED ORDER ONE (04:15)
[2016-12-21] MEDS ORDERED: NSS + 20MEQ KCL 1000ML 1,000 ML IV SCH (04:30)
--- NOTE | 2016-12-21 07:07 | DIAGNOSTIC IMAGING REPORT ---
HEAD CT NONCONTRAST CT DOSE: 850.76 mGy.cm HISTORY: Slurred speech. Worsening stroke like symptoms TECHNIQUE: Multiaxial CT images of the head were performed without the use of intravenous contrast. Automated exposure control was utilized for this study. A dose lowering technique was utilized adhering to the principles of ALARA. Comparison: Head CT and brain MRI 12/20/2016. Findings: The paranasal sinuses and mastoid air cells are clear. The calvarium and skull base are intact. Old left frontal lobe infarct is again noted. The ventricles are normal in size. No mass, hematoma, midline shift. The small right frontal lobe infarct seen on the prior MRI are not well visualized on this study. Mild microvascular ischemic changes again noted. Impression: 1. No acute intracranial hemorrhage. 2. Previously described acute infarcts on the recent MRI in the posterior right frontal lobe are not well visualized on this study. Electronically signed by: Ger Orozco M.D. 12/21/2016 7:06 AM Dictated Date/Time: 12/21/2016 7:04 AM
[2016-12-21] MEDS: ATORVASTATIN 40 MG TAB PO SCH (09:15)
[2016-12-21] MEDS: ASPIRIN 81 MG ECTAB PO SCH (09:15)
[2016-12-21 09:17] LABS: PARTIAL THROMBOPLASTIN RATIO 1.8
[2016-12-21] MEDS: HEPARIN 25,000 UNIT/500ML D5W 500 ML IV PRN (09:17)
--- NOTE | 2016-12-21 10:10 | ECHOCARDIOGRAM REPORT ---
*NOTICE TO RECEIVING LIBERTARIAN AGENCY This information is strictly Confidential and protected under [place] law. [place] law prohibits you from making any further disclosure of this information unless further disclosure is expressly permitted by the written consent of the person to whom it pertains or is authorized by law. A general authorization for the release of medical or other information is not sufficient for this purpose. Hospital accepts no responsibility if the information is made available to any other person, INCLUDING THE PATIENT. Interpretation Summary * Name: MARISSA JUDGE Study Date: 12/21/2016 06:52 AM BP: 150/109 mmHg * Patient Location: [id number] HR: 84 * : 1960 (M/d/yyyy) Gender: Male Height: 66 in * Age: 56 yrs Ethnicity: CA Weight: 221 lb * Ordering Physician: Ernie Torres * Referring Physician: Self, Referred * Performed By: Lesley Hidalgo RCS * * Reason For Study: CVA * BSA: 2.1 m2 * Moderate left ventricular systolic function. * Mild concentric left ventricular hypertrophy. * Mild left atrial dilatation. * Mild aortic stenosis. * Trace pulmonic regurgitation. * Trace mitral and tricuspid regurgitation. * Mildly elevated right ventricular systolic pressure. * Elevated central venous pressure. Procedure Details * A complete two-dimensional transthoracic echocardiogram was performed (2D, M-mode, Doppler and color flow Doppler). * A saline contrast injection was performed to assess for cardiac shunting. * The injection was performed through an intravenous line in the left arm. * The attending nurse who injected the saline contrast was PJ BRAGG, MAGGY. * A total of 10 cc of agitated saline was given. * The study was technically difficult. * A contrast injection of Definity was performed to improve assessment of LV function. * Contrast was injected into an intravenous site in the left arm. * One vial of Definity ultrasound contrast was diluted in normal saline to a total volume of 10 ml. A total of '2' ml of solution was administered during imaging. * Lot # [id number] of Definity utilized for procedure. * Expiration date FEB 01. Left Ventricle * The left ventricle is normal in size. * There is no thrombus. * There is mild concentric left ventricular hypertrophy. * Left ventricular systolic function is moderately reduced. * Ejection Fraction = 30-35%. * There is moderate global hypokinesis of the left ventricle. Right Ventricle * The right ventricle is normal in size and function. Atria * The left atrium is mildly dilated. * Right atrial size is normal. Mitral Valve * The mitral valve is normal. * There is no mitral valve stenosis. * There is trace mitral regurgitation. Tricuspid Valve * The tricuspid valve is not well visualized, but is grossly normal. * There is no tricuspid stenosis. * Right ventricular systolic pressure is elevated at 30-40mmHg. * There is trace tricuspid regurgitation. Aortic Valve * The aortic valve is trileaflet. * Sclerotic aortic valve with decreased but adequate opening on 2 D imaging. * Dimensionless AV index 0.48 * Mild valvular aortic stenosis. * Aortic valve area was calculated at 1.4 cm\S\2 using the continuity equation. * No aortic regurgitation is present. Pulmonic Valve * The pulmonic valve is not well visualized. * The pulmonary valve is inadequately visualized, but the Doppler data is adequate for interpretation. * There is no pulmonic valvular stenosis. * Trace pulmonic valvular regurgitation. Great Vessels * The aortic root is normal size. Pericardium/Pleural * There is no pericardial effusion. Great Vessels * The inferior vena cava is mildly dilated. MMode 2D Measurements and Calculations IVSd 1.2 cm IVSs 1.3 cm LVIDd 4.9 cm LVIDs 4.2 cm LVPWd 1.2 cm LVPWs 1.5 cm IVS/LVPW 1.0 FS 14.2 % EDV(Teich) 112.0 ml ESV(Teich) 78.3 ml EF(Teich) 30.1 % EDV(cubed) 116.6 ml ESV(cubed) 73.7 ml EF(cubed) 36.8 % % IVS thick 5.9 % % LVPW thick 26.4 % LV mass(C)d 224.7 grams LV mass(C)dI 107.7 grams/m\S\2 LV mass(C)s 221.1 grams LV mass(C)sI 106.0 grams/m\S\2 SV(Teich) 33.7 ml SI(Teich) 16.2 ml/m\S\2 SV(cubed) 42.8 ml SI(cubed) 20.5 ml/m\S\2 Ao root diam 2.6 cm Ao root area 5.2 cm\S\2 LA dimension 4.6 cm LA/Ao 1.8 LVOT diam 2.0 cm LVOT area 3.0 cm\S\2 Doppler Measurements and Calculations MV E max atul 103.1 cm/sec MV P1/2t max atul 139.1 cm/sec MV P1/2t 96.4 msec MVA(P1/2t) 2.3 cm\S\2 MV dec slope 422.6 cm/sec\S\2 MV dec time 0.14 sec Ao V2 max 202.2 cm/sec Ao max PG 16.4 mmHg Ao max PG (full) 12.6 mmHg Ao V2 mean 148.7 cm/sec Ao mean PG 9.6 mmHg Ao V2 VTI 40.6 cm ANKITA(V,A) 1.4 cm\S\2 ANKITA(V,D) 1.4 cm\S\2 LV V1 max PG 3.8 mmHg LV V1 max 97.2 cm/sec MR max atul 479.4 cm/sec MR max PG 91.9 mmHg SV(Ao) 211.4 ml SI(Ao) 101.3 ml/m\S\2 PA V2 max 69.6 cm/sec PA max PG 1.9 mmHg PI max atul 212.9 cm/sec PI max PG 18.1 mmHg PI dec slope 139.6 cm/sec\S\2 PI P1/2t 446.8 msec TR max atul 278.2 cm/sec
[2016-12-21] MEDS ORDERED: METOPROLOL SUCC 25MG EXT REL TAB PO STA (10:57)
[2016-12-21] MEDS ORDERED: SPIRONOLACTONE 25 MG TAB PO ONE (11:15)
--- NOTE | 2016-12-21 12:22 | CARDIOLOGY PROGRESS NOTE ---
DATE: 12/21/2016 HISTORY OF PRESENT ILLNESS: The patient was seen by me this morning in his telemetry unit room. Last evening, he was noted to have worsening left arm weakness, left facial droop, and slurred speech. This has persisted since then. This was a new change compared to when I had seen him last evening between 06:30 and 07:00 p.m. He did undergo repeat head CT scan early this morning. It did not reveal any evidence of intracranial hemorrhage. 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 No mass effect. No midline shift. The previously documented small right frontal lobe infarct seen on prior MRI was not well visualized on the CT scan. The patient states that this morning, he persists with left lower arm and left hand weakness. He also recognizes that he has left-sided facial weakness and slurred speech. He had no difficulty in swallowing. He ate breakfast well this morning. He denies any left leg weakness. He has been walking in the [place]. He has no cardiac complaints with this. He denies any dyspnea at rest or with his activities. No orthopnea or PND overnight. No palpitations, lightheadedness, or syncope. No chest pain or other anginal type pains. No leg edema. No leg pain. No GI or pulmonary complaints. No fevers or chills. No urinary complaints. His intravenous diltiazem was discontinued overnight. Review of monitor shows him to be in atrial fibrillation. Current ventricular rate at 90 beats per minute. Overnight, he had ventricular rates in the 50s-60s. PHYSICAL EXAMINATION: VITAL SIGNS: This morning with oral temperature of 36.9, pulse 79, and blood pressure 137/91. At 04:00 a.m., his blood pressure is 112/68. Pulse oximetry on room air 96%. GENERAL APPEARANCE: Shows him to be in no distress. NECK: No jugular venous distention. LUNGS: Normal respiratory effort. Clear. No rales or wheezes. HEART: Irregularly irregular. 1/6 systolic murmur at the second intercostal space and left sternal border. No diastolic murmur. No S3 or rub. ABDOMEN: Soft. Nontender. No palpable masses or organomegaly. EXTREMITIES: No pretibial edema. No cyanosis or clubbing. NEUROLOGIC: Alert and oriented x3. Left-sided facial weakness. Mild weakness in the left lower arm and left hand. 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 Echocardiogram performed this morning and reviewed and interpreted by me shows moderate LV systolic dysfunction. LV ejection fraction 30%-35%. Mild concentric LVH. Mild left atrial dilatation. Normal right atrial dimension. Mild aortic stenosis. Trace mitral regurgitation. Trace tricuspid regurgitation. Mildly elevated estimated right ventricular systolic pressure between 30 and 40 mmHg. Elevated central venous pressure. The inferior vena cava was dilated. Electrocardiogram performed this morning and reviewed by me shows atrial fibrillation at a rate of 66 beats per minute. Lateral T inversions suggestive of ischemia. Compared to yesterday's electrocardiogram, ventricular rate has decreased. LABORATORY DATA: Today with WBC 10.07, hemoglobin 14.8, hematocrit 42.2, and platelet count 174. PTT 47.4. Metabolic profile with sodium 139, potassium 3.5, chloride 104, carbon dioxide 27, BUN 15, creatinine 0.96, random glucose 124 and magnesium 2.1. Lipid profile with triglycerides 85, total cholesterol 162, calculated LDL 99 and HDL 46. TSH 1.680. Hemoglobin A1c yesterday was 5.9. CURRENT MEDICATIONS: Atorvastatin 40 mg daily, aspirin 81 mg daily, normal saline with added potassium chloride 100 mL per hour, intravenous heparin by weight based protocol, and several p.r.n. medications. ALLERGIES AND ADVERSE DRUG REACTIONS: None. ASSESSMENT: 1. Presentation with small acute infarctions involving the right frontal lobe. Yesterday, he had left facial weakness and left arm and hand weakness. The symptoms improved. Worsening of these symptoms last evening and overnight. They have persisted since then. Head CT scan performed earlier this morning without any evidence of acute intracranial hemorrhage. He persists with a left facial droop, slurred speech, and left arm and hand weakness. 2. Atrial fibrillation with rapid ventricular response noted yesterday. Duration unknown. The patient was asymptomatic in regards to cardiac symptoms. He had no palpitations. He recently has had no decrease in his exercise tolerance. It is unknown how long he may have been in atrial fibrillation. Certainly, the atrial fibrillation would cause him to be at increased risk for thromboembolic event. MRI of his brain showed an old left-sided infarct. Two infarcts in the right frontal lobe documented yesterday. This pattern will be consistent with embolic phenomenon. Thus, very likely atrial fibrillation is etiology of his thromboembolic events. He was started on intravenous heparin yesterday. PTT this morning is low therapeutic. The ventricular rate with the atrial fibrillation decreased overnight. His diltiazem was discontinued. At this time, he has a mildly elevated ventricular rate. Ventricular rate this morning is in the 90s. On echocardiography today, the left atrium is only mildly dilated. The right atrium is normal in dimension. With longstanding atrial fibrillation, significant left and right atrial dilatation is usually seen. 3. Moderate left ventricular systolic dysfunction. This may be tachycardia induced left ventricular systolic dysfunction. Cannot exclude if the left ventricular systolic dysfunction preceeded the atrial fibrillation. Elevated right heart and central venous pressures on the echo. He has no signs or symptoms of congestive heart failure. 4. Hypertension. His blood pressure has improved from yesterday. He was markedly hypertensive on presentation to the Emergency Department. 5. Normal thyroid function. Normal potassium and magnesium levels. 6. Elevated hemoglobin A1c. 7. Mildly elevated LDL. RECOMMENDATIONS: 1. Discontinue IV fluids. Do not want to precipitate congestive heart failure. On echo today, he has evidence of elevated central venous and right heart pressures. 2. Start low dose beta morro therapy with metoprolol succinate ER 25 mg b.i.d. Watch for significant bradycardias. If this does develop, the dose can be decreased to 12.5 mg b.i.d. 3. 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 However, do not want to acutely lower his blood pressure today in light of his recent cerebrovascular accident. 4. Low sodium diet. 5. Physical therapy and occupational therapy consultations. 6. Speech therapy consultation. 7. There is no evidence of volume overload at this time. We will start him on spironolactone 25 mg daily in light of his LV systolic dysfunction. 8. Continue intravenous heparin at this time. Prior to discharge, he can be switched to a novel oral anticoagulant. 9. His echocardiogram reveals mild aortic stenosis. He is asymptomatic with this. With the aortic stenosis, he will need at least a yearly echocardiogram. However, will likely repeat an echocardiogram in several weeks to reassess LV systolic function. 10. After the patient has been anticoagulated for 4 weeks, we will then consider electrical cardioversion if he persists with atrial fibrillation. [facility]
[2016-12-21] MEDS ORDERED: RIVAROXABAN 20 MG TAB PO ONE (12:56)
--- NOTE | 2016-12-21 14:52 | Progress Note ---
Subjective Date of Service: Dec 21, 2016. Subjective Pt evaluation today including: conversation w/ patient, physical exam, chart review, lab review, review of studies, review of inpatient medication list Feeling better Still reports left arm weakness and facial droop No issues speaking or swallowing Resting comfortably in bed Review of Systems Constitutional: No fever, No chills, No sweats, No weakness Eyes: No worsening of vision, No eye pain, No redness, No discharge, No diplopia Respiratory: No cough, No sputum, No wheezing, No shortness of breath Cardiac: No chest pain, No orthopnea, No PND, No edema Abdomen: No pain, No nausea, No vomiting, No diarrhea, No constipation Musculoskeletal: No joint pain, No muscle pain, No swelling, No calf pain Male : No dysuria, No urinary frequency, No incontinence, No slowing stream Neurologic: + weakness (left arm), No memory loss, No paralysis, No vertigo Psychiatric: No depression symptoms, No anhedonism, No anxiety, No insomnia Endo: No fatigue, No excessive thirst Skin: No rash, No itch Objective Vital Signs Date Time Temp Pulse Resp B/P (MAP) Pulse Ox O2 Delivery O2 Flow Rate FiO2 12/21/16 12:00 Room Air 12/21/16 11:00 37.1 95 20 144/94 (111) 97 Room Air 12/21/16 08:00 Room Air 12/21/16 07:26 36.9 79 20 137/91 (106) 96 12/21/16 05:49 74 131/87 (102) 12/21/16 04:00 36.8 72 22 112/68 (83) 96 Room Air 12/21/16 04:00 Room Air 12/21/16 00:01 Room Air 12/21/16 00:00 36.8 67 22 133/78 (96) 95 Room Air 12/20/16 21:02 76 119/77 (91) 91 Room Air 12/20/16 20:47 66 114/74 (87) 93 Room Air 12/20/16 20:31 70 116/78 (91) 94 Room Air 12/20/16 20:16 76 128/86 (100) 95 Room Air 12/20/16 20:01 77 133/87 (102) 95 Room Air 12/20/16 20:00 Room Air 12/20/16 19:45 75 119/91 (100) 92 Room Air 12/20/16 19:39 71 135/89 (104) 12/20/16 19:24 36.8 88 18 134/91 (105) 96 Room Air 12/20/16 18:00 37.2 86 18 159/99 (119) 94 Room Air 12/20/16 16:30 37.0 97 20 159/99 (119) 97 Room Air 12/20/16 16:15 37.0 95 22 154/110 (125) 96 Room Air 12/20/16 16:00 Room Air 12/20/16 16:00 37.0 22 154/110 (125) 96 Room Air 12/20/16 15:30 37.1 92 20 158/111 (127) 96 Room Air Physical Exam General Appearance: WD/WN, no apparent distress Eyes: normal inspection, PERRL, EOMI, sclerae normal Neck: supple, no adenopathy, thyroid normal, no JVD Respiratory/Chest: chest non-tender, lungs clear, normal breath sounds, no respiratory distress Cardiovascular: no edema, no gallop, no JVD, no murmur, + tachycardia, + irregularly irregular Abdomen: normal bowel sounds, non tender, soft, no pulsatile mass Extremities: normal range of motion, non-tender, normal inspection, no pedal edema Neurologic/Psychiatric: alert, normal mood/affect, oriented x 3, + motor weakness (left arm weakness), + pertinent finding (left sided facial droop) Laboratory Results Last 24 Hours Test 12/20/16 18:34 12/21/16 01:38 12/21/16 08:49 Activated Partial Thromboplast Time 35.5 SECONDS 46.0 SECONDS 47.4 SECONDS Partial Thromboplastin Ratio 1.4 1.8 1.8 Magnesium Level 2.1 mg/dl Total Bilirubin 0.8 mg/dl Direct Bilirubin 0.1 mg/dl Aspartate Amino Transf (AST/SGOT) 20 U/L Alanine Aminotransferase (ALT/SGPT) 24 U/L Alkaline Phosphatase 79 U/L Total Protein 7.8 gm/dl Albumin 3.7 gm/dl Thyroid Stimulating Hormone (TSH) 1.680 uIu/ml White Blood Count 10.07 K/uL Red Blood Count 4.87 M/uL Hemoglobin 14.8 g/dL Hematocrit 42.2 % Mean Corpuscular Volume 86.7 fL Mean Corpuscular Hemoglobin 30.4 pg Mean Corpuscular Hemoglobin Concent 35.1 g/dl Platelet Count 174 K/uL Mean Platelet Volume 11.8 fL Neutrophils (%) (Auto) 66.6 % Lymphocytes (%) (Auto) 25.4 % Monocytes (%) (Auto) 5.9 % Eosinophils (%) (Auto) 1.5 % Basophils (%) (Auto) 0.4 % Neutrophils # (Auto) 6.71 K/uL Lymphocytes # (Auto) 2.56 K/uL Monocytes # (Auto) 0.59 K/uL Eosinophils # (Auto) 0.15 K/uL Basophils # (Auto) 0.04 K/uL RDW Standard Deviation 40.3 fL RDW Coefficient of Variation 12.7 % Immature Granulocyte % (Auto) 0.2 % Immature Granulocyte # (Auto) 0.02 K/uL Sodium Level 139 mmol/L Potassium Level 3.5 mmol/L Chloride Level 104 mmol/L Carbon Dioxide Level 27 mmol/L Anion Gap 8.0 mmol/L Blood Urea Nitrogen 15 mg/dl Creatinine 0.96 mg/dl Est Creatinine Clear Calc Drug Dose 95.3 ml/min Estimated GFR () 102.0 Estimated GFR (Non- 88.0 BUN/Creatinine Ratio 15.1 Random Glucose 124 mg/dl Calcium Level 8.7 mg/dl Triglycerides Level 85 mg/dl Cholesterol Level 162 mg/dl HDL Cholesterol 46 mg/dl LDL Cholesterol, Calculated 99 mg/dl VLDL Cholesterol, Calculated 17 mg/dl Cholesterol/HDL Ratio 3.5 Assessment and Plan 56 y/o M who denies any significant medical history although he has not seen a physician in several years. The pt was at work when he became light-headed and then per his coworkers, exhibited slurred speech and a L facial droop. He describes L upper extremity weakness as well. His symptoms resolved after a few minutes and he is asymptomatic on arrival to the ER. Initial EKG reveals AF with a rate of ~115. He was not aware of palpitations and did not c/o any CP /SOB. A CT head indicates that he suffered a remote frontal CVA - he does not recall any associated symptoms. 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 DCed and placed on xarelto 20 mg PO daily. Cont statin and ASA. Old left frontal lobe infarct noted on MRI brain, MRA neck unremarkable. Neurology consultation appreciated 2) AF - placed on rate control and anticoagulation - hopefully transition cardizem to PO. Cont AC Full code - full dose Heparin, xarelto Total time for this admit including review of labs, records, EKG, imaging - discussion with pt and ER attending - 38 min
--- NOTE | 2016-12-21 18:38 | PROGRESS NOTE ---
DATE: 12/21/2016 Basilio certainly is different than he was yesterday at about 4:00 PM and just prior to his MRI. At that point, there were barely any suggestions of significant right hemispheric lesion. There may have been a slight left facial asymmetry and minor clumsiness of the left hand at most, but at some point overnight, probably around 4 in the morning, he had a worsening of his symptoms with a clearcut now left upper motor neuron facial paresis and a clumsy left hand with drift. An MRI scan showed 2 areas of infarction but they were small, were mainly in the parietal area and that would be consistent with embolic infarctions as there was nothing on MRA of the cervical vessels or intracranial vessels to suggest another source of the stroke. He is in atrial fibrillation, probably has been for some time. The CT scan done this morning did not show anything new but a recurrent stroke would easily have been missed on CT. It was helpful however in eliminating the potential of bleed. At this point, cardiology has him well in hand. Dr. Neff's recommendations for treatment of the arrhythmia are well outlined along with a followup plan and he will be continued on heparin, discharged on novel anticoagulant and then seen back in followup in 4 weeks, at which point a trial of cardioversion might be made. From a neurologic point of view, I think he may actually need some time at a rehabilitation facility. He lives alone. He plans to go home to be with his sister, but I am not sure she is going to be able to handle his deficits as he seems to be unaware of them, which would be typical for right hemisphere. I would suggest therefore rehabilitation medicine consult and perhaps another MRI noncontrast tomorrow, just to see if the areas of infarction have changed or there is any evidence for late hemorrhage on this type of imaging study. I will put an order in for noncontrast MRI to be done tomorrow and will check back on the results in the afternoon MTDD
[2016-12-21] MEDS: METOPROLOL SUCC 25MG EXT REL TAB PO SCH (20:44)
[2016-12-22] VITALS (9 sets, daily range): BP systolic 121–150; BP diastolic 75–98; PULSE 66–82; TEMP 36.6–37.1; O2SAT 95–98
[2016-12-22 06:37] LABS: BASO % 0.6 %; BASO ABS # 0.06 K/uL (0-0.2); COMPLETE YES; IG% 0.4 %; LYMPH % 26.6 %; LYMPH ABS # 2.76 K/uL (1.2-3.4); MEAN CELL VOLUME 87.6 fL (80-100); MEAN CORPUSCULAR HEMOGLOBIN 30.8 pg (25-34); MEAN CORPUSCULAR HGB CONC 35.2 g/dl (32-36); MONO % 7.3 %; NEUT % 63.1 %; PLATELET COUNT 186 K/uL (130-400); RED BLOOD COUNT 5.48 M/uL (4.7-6.1); WHITE BLOOD COUNT 10.38 K/uL (4.8-10.8)
[2016-12-22 07:18] LABS: BUN/CREATININE RATIO 13.3 (10-20); CALCIUM 9.6 mg/dl (8.5-10.1); POTASSIUM 4.2 mmol/L (3.5-5.1)
[2016-12-22 07:21] LABS: PARTIAL THROMBOPLASTIN RATIO 1.2
[2016-12-22] MEDS: METOPROLOL SUCC 25MG EXT REL TAB PO SCH ×2 (08:05→20:23)
[2016-12-22] MEDS: ATORVASTATIN 40 MG TAB PO SCH (08:05)
[2016-12-22] MEDS: ASPIRIN 81 MG ECTAB PO SCH (08:05)
[2016-12-22] MEDS: SPIRONOLACTONE 25 MG TAB PO SCH (08:06)
--- NOTE | 2016-12-22 10:02 | CARDIOLOGY PROGRESS NOTE ---
DATE: 12/22/2016 SUBJECTIVE: The patient was seen by me this morning in his telemetry unit room. From a cardiac standpoint, he continues to do well. He denies any dyspnea at rest or with his activities. He is walking around the unit without any cardiac complaints. No orthopnea or PND. No palpitations, lightheadedness, syncope, or peripheral edema. No chest pain or other anginal type pains. He has been transitioned from heparin to oral anticoagulation. He denies any bleeding complaints. From a neurologic standpoint, he thinks that his strength in his left hand is slightly improved from yesterday. He experienced some paresthesias in his fingers and around the left side of his mouth this morning. He denies any difficulty in swallowing. No GI complaints. No pulmonary complaints. No urinary complaints. MEDICATIONS: This morning were metoprolol succinate ER 25 mg b.i.d., Xarelto 20 mg daily, spironolactone 25 mg daily, atorvastatin 40 mg daily, and aspirin 81 mg daily. ALLERGIES AND ADVERSE DRUG REACTIONS: None. Monitor reviewed by me. It shows atrial fibrillation. Ventricular rate in the 80s. PHYSICAL EXAMINATION: VITAL SIGNS: This morning with oral temperature of 36.8, pulse 75, blood pressure 147/87, pulse oximetry on room air 97% and blood pressure last evening was 143/103. GENERAL APPEARANCE: Shows him to be in no distress. He is sitting in his chair by his bedside. NECK: No jugular venous distention. LUNGS: Normal respiratory effort. Clear. No rales or wheezes. HEART: Irregularly irregular. 1/6 systolic murmur at the second right intercostal space, left sternal border. No S3, rub, or diastolic murmur. ABDOMEN: Soft. Nontender. No palpable masses or organomegaly. No bruits. EXTREMITIES: No pretibial edema. No calf tenderness. NEUROLOGIC: Left-sided facial weakness. Left hand weakness. He is alert and oriented x3. LABORATORY DATA: Today with hemoglobin 16.9, hematocrit 48.0, platelet count 186, and WBC 10.38. Metabolic profile with sodium 137, potassium 4.2, chloride 104, carbon dioxide 28, BUN 13, creatinine 1.0, random glucose 118. ASSESSMENT: 1. Newly diagnosed atrial fibrillation on this admission. Duration unknown as the patient was asymptomatic from a cardiac standpoint. Ventricular rate controlled with metoprolol succinate. 2. Moderate left ventricular systolic dysfunction on echocardiography this admission. He also has mild aortic stenosis. He has not had any signs or symptoms of congestive heart failure. Cannot exclude that the cardiomyopathy was secondary to sustained atrial fibrillation with elevated ventricular rates. Conversely, the atrial fibrillation could be secondary to the cardiomyopathy. 3. Hypertension. No prior history of hypertension. However, the patient had not seen a healthcare provider for over 25 years prior to this admission. His echocardiogram revealed only mild concentric left ventricular hypertrophy. 4. Status post embolic cerebrovascular accident. Left arm and hand weakness. Left facial weakness. The patient reports today that he thinks the symptoms are slightly improved from yesterday. 5. Stable hemoglobin on anticoagulation therapy. No bleeding complaints. 6. Stable renal function and potassium. He was started on spironolactone yesterday. PLAN AND RECOMMENDATIONS: 1. We will add low dose lisinopril 2.5 mg daily. However, I do not want to lower his blood pressure excessively in light of his recent CVA. The dose can be titrated slowly upwards as necessary to control his blood pressure. SOCRATES inhibitor therapy is indicated in light of his cardiomyopathy. 2. We will switch to a dosing schedule metoprolol succinate ER 50 mg daily tomorrow. He is currently receiving b.i.d. dosing. 3. Continue atorvastatin, aspirin, and spironolactone. 4. After he has been anticoagulated for 4 weeks, we will consider electrical cardioversion if he persists with atrial fibrillation. 5. The patient should have outpatient cardiology followup with me. He is agreeable to this. He should have cardiology followup in 2-3 weeks after discharge. If I am unavailable this a.m. secondary to scheduling difficulties, he could be seen by one of the [facility] physician assistants. 6. The patient is scheduled to undergo a repeat MRI scan today to assess for the status of his infarcts.
[2016-12-22] MEDS: LISINOPRIL 2.5 MG TAB PO SCH (11:50)
--- NOTE | 2016-12-22 14:02 | Progress Note ---
Subjective Date of Service: Dec 22, 2016. Subjective Pt evaluation today including: conversation w/ patient, physical exam, chart review, lab review, review of studies, review of inpatient medication list Resting comfortably in bed No concerns noted States numbness around lips is better Improvement in left arm strength Review of Systems Constitutional: No fever, No chills, No sweats, No weight loss, No weakness Eyes: No worsening of vision, No eye pain, No redness, No discharge ENT: No hearing loss, No unusual epistaxis, No nasal symptoms, No sore throat Respiratory: No cough, No sputum, No wheezing, No shortness of breath, No dyspnea on exertion Cardiac: No chest pain, No orthopnea, No PND, No edema Abdomen: No pain, No nausea, No vomiting, No diarrhea, No constipation Musculoskeletal: No joint pain, No muscle pain, No swelling Male : No dysuria, No urinary frequency, No incontinence, No slowing stream Neurologic: + paralysis (left sided facial droop), + weakness (left arm weakness), + numbness/tingling (perioral numbness), No memory loss Psychiatric: No depression symptoms, No anhedonism, No anxiety, No insomnia Endo: No fatigue, No excessive thirst Skin: No rash, No itch Objective Vital Signs Date Time Temp Pulse Resp B/P (MAP) Pulse Ox O2 Delivery O2 Flow Rate FiO2 12/22/16 12:03 36.7 82 20 138/98 (111) 97 Room Air 12/22/16 12:00 Room Air 12/22/16 08:00 Room Air 12/22/16 07:08 36.8 75 20 147/87 (107) 97 12/22/16 04:00 Room Air 12/22/16 03:59 36.6 80 22 133/90 (104) 97 Room Air 12/22/16 00:00 36.6 78 22 150/95 (113) 96 Room Air 12/22/16 00:00 Room Air 12/21/16 20:00 Room Air 12/21/16 19:05 36.4 88 18 147/103 (118) 96 Room Air 12/21/16 16:00 Room Air 12/21/16 15:24 37.2 87 18 147/99 (115) 97 Room Air Physical Exam General Appearance: WD/WN, no apparent distress Eyes: normal inspection, PERRL, EOMI, sclerae normal Neck: supple, no adenopathy, thyroid normal, no JVD Respiratory/Chest: chest non-tender, lungs clear, normal breath sounds, no respiratory distress Cardiovascular: no edema, no JVD, + tachycardia, + irregularly irregular Abdomen: normal bowel sounds, non tender, soft, no organomegaly Extremities: normal range of motion, non-tender, normal inspection, no pedal edema Neurologic/Psychiatric: alert, normal mood/affect, oriented x 3, + motor weakness (left arm numbness), + sensory deficit (perioral numbness) Laboratory Results Last 24 Hours Test 12/22/16 06:05 White Blood Count 10.38 K/uL Red Blood Count 5.48 M/uL Hemoglobin 16.9 g/dL Hematocrit 48.0 % Mean Corpuscular Volume 87.6 fL Mean Corpuscular Hemoglobin 30.8 pg Mean Corpuscular Hemoglobin Concent 35.2 g/dl Platelet Count 186 K/uL Mean Platelet Volume 12.0 fL Neutrophils (%) (Auto) 63.1 % Lymphocytes (%) (Auto) 26.6 % Monocytes (%) (Auto) 7.3 % Eosinophils (%) (Auto) 2.0 % Basophils (%) (Auto) 0.6 % Neutrophils # (Auto) 6.55 K/uL Lymphocytes # (Auto) 2.76 K/uL Monocytes # (Auto) 0.76 K/uL Eosinophils # (Auto) 0.21 K/uL Basophils # (Auto) 0.06 K/uL RDW Standard Deviation 40.7 fL RDW Coefficient of Variation 12.7 % Immature Granulocyte % (Auto) 0.4 % Immature Granulocyte # (Auto) 0.04 K/uL Activated Partial Thromboplast Time 30.1 SECONDS Partial Thromboplastin Ratio 1.2 Sodium Level 137 mmol/L Potassium Level 4.2 mmol/L Chloride Level 104 mmol/L Carbon Dioxide Level 28 mmol/L Anion Gap 5.0 mmol/L Blood Urea Nitrogen 13 mg/dl Creatinine 1.00 mg/dl Est Creatinine Clear Calc Drug Dose 89.2 ml/min Estimated GFR () 97.1 Estimated GFR (Non- 83.8 BUN/Creatinine Ratio 13.3 Random Glucose 118 mg/dl Calcium Level 9.6 mg/dl Assessment and Plan 56 y/o M who denies any significant medical history although he has not seen a physician in several years. The pt was at work when he became light-headed and then per his coworkers, exhibited slurred speech and a L facial droop. He describes L upper extremity weakness as well. His symptoms resolved after a few minutes and he is asymptomatic on arrival to the ER. Initial EKG reveals AF with a rate of ~115. He was not aware of palpitations and did not c/o any CP /SOB. A CT head indicates that he suffered a remote frontal CVA - he does not recall any associated symptoms. 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 DCed and placed on xarelto 20 mg PO daily. Cont statin and ASA. Old left frontal lobe infarct noted on MRI brain, MRA neck unremarkable. Neurology consultation appreciated 2) AF - placed on rate control and anticoagulation - Appreciate cardiology consultation. ECHO completed. Rate controlled on toprol 25 mg PO BID, hope to titrate to 50 mg daily. Cont AC at this time. Likely cardioversion in future once anticoagulated for some time Full code - full dose Heparin, xarelto
--- NOTE | 2016-12-22 16:13 | DIAGNOSTIC IMAGING REPORT ---
Brain MRI WITHOUT CONTRAST HISTORY: Stroke like symptoms. Slurred speech and confusion. Follow-up. TECHNIQUE: Multiplanar multisequence MRI of the brain was performed without the use of contrast. COMPARISON STUDY: Head CT 12/21/2016. Brain MRI 12/20/2016. FINDINGS: Slight increase in size in the 2 adjacent right posterior frontal lobe acute infarcts. Dominant infarct measures 2.1 cm, previously measuring 1.2 cm. No additional infarcts identified. Mild edema within the right posterior frontal lobe at the site of infarcts. No significant mass effect or midline shift. The major vascular flow-voids at the skull base are well-maintained. The paranasal sinuses and left mastoid air cells are clear. There are few opacified right inferior mastoid air cells. Old left frontal lobe infarct is again noted. The midline structures are intact. No acute hemorrhage identified. IMPRESSION: Slight increase in size in the 2 adjacent right posterior frontal lobe acute infarcts. No acute hemorrhage. Electronically signed by: Ger Orozco M.D. 12/22/2016 4:11 PM Dictated Date/Time: 12/22/2016 4:08 PM
[2016-12-22] MEDS ORDERED: RIVAROXABAN 20 MG TAB PO SCH (16:45)
--- NOTE | 2016-12-22 17:12 | PROGRESS NOTE ---
DATE: 12/22/2016 SUBJECTIVE: Basilio looks a little better today, still has a moderately prominent left upper motor neuron facial paresis and clumsiness in the left hand, all of which has worse than when I saw him at 4:00 on the day of his admission, but is better than yesterday. I was planning to get an MRI of the brain, noncontrast, to see if he had another shower of emboli which I suspect did occur at 4:00 in the morning on Monday, but the scan has not yet been reported. I cannot locate the images or the report, I called the MRI scan, I think they are going to try to rectify this. To some degree the results are academic as even he had another series of emboli. due to his atrial fibrillation he is being managed quite effectively by cardiology and his other risk factors for vascular disease are also being addressed. He is going to need to seek out a primary care physician and I suspect it will be through the [facility] who is caring for him now. He is going to need follow up with cardiology and obviously this is being arranged. I suppose neurology could look at him on one occasion following discharge, but I think this would be elective as right now the cause of his stroke is clearly that of the atrial fibrillation which was undiagnosed before and his medical management and anticoagulation management are going to be run by whoever his primary care physician will be in the future and cardiology. He is apparently going to need a little rehabilitation. Hopefully, this can be done in his home rather than that an institution and then apparently he is going to return to live with his sister for the foreseeable future until he can be cleared to go back to work if this is possible. Right now, I am going to sign off the case. Dr. Burnett will be around on our service if there are any changes in his overall neurologic status. CRICKET
[2016-12-23 03:15] VITALS: BP 135/84; PULSE 72; TEMP 36.7; O2SAT 98
[2016-12-23 05:41] LABS: BASO % 0.3 %; BASO ABS # 0.03 K/uL (0-0.2); COMPLETE YES; EOS % 1.7 %; HEMATOCRIT 44.6 % (42-52); IG% 0.3 %; LYMPH % 18.1 %; LYMPH ABS # 1.94 K/uL (1.2-3.4); MEAN CORPUSCULAR HGB CONC 35.2 g/dl (32-36); MEAN PLATELET VOLUME 11.4 fL (7.4-10.4); MONO % 7.1 %; NEUT % 72.5 %; PLATELET COUNT 172 K/uL (130-400); RED BLOOD COUNT 5.07 M/uL (4.7-6.1)
[2016-12-23 06:08] LABS: BUN/CREATININE RATIO 17.2 (10-20); CALCIUM 9.2 mg/dl (8.5-10.1); CREATININE 0.98 mg/dl (0.60-1.40); POTASSIUM 4.1 mmol/L (3.5-5.1)
[2016-12-23 07:25] VITALS: BP 135/94; PULSE 81; TEMP 36.8; O2SAT 96
[2016-12-23] MEDS: SPIRONOLACTONE 25 MG TAB PO SCH (07:48)
[2016-12-23] MEDS: ATORVASTATIN 40 MG TAB PO SCH (07:48)
[2016-12-23] MEDS: ASPIRIN 81 MG ECTAB PO SCH (07:48)
[2016-12-23] MEDS: LISINOPRIL 2.5 MG TAB PO SCH (07:50)
[2016-12-23] MEDS: METOPROLOL SUCC 25MG EXT REL TAB PO SCH (09:00)
[2016-12-23] MEDS ORDERED: METOPROLOL SUCC 50MG EXT REL TAB PO SCH (09:00)
[2016-12-23 11:22] VITALS: BP 127/88; PULSE 94; TEMP 36.7; O2SAT 98
[2016-12-23] MEDS ORDERED: LSN25 PO (11:55)
[2016-12-23] MEDS ORDERED: XRL20 PO (11:55)
[2016-12-23] MEDS ORDERED: LPT40 PO (11:55)
[2016-12-23] MEDS ORDERED: SPR25 PO (11:55)
[2016-12-23] MEDS ORDERED: TPRSR50 PO (11:55)
--- NOTE | 2016-12-23 12:03 | Discharge Instructions ---
Discharge Instructions Date of Service Dec 23, 2016. Admission Reason for Admission: Atrial Fibrillation With Rvr, Tia Discharge Discharge Diagnosis / Problem: Atrial fibrillation with RVR, embolic CVA Discharge Goals Goal(s): Decrease discomfort, Improve function, Increase independence, Improve disease control, Learn about illness, Diagnostic testing, Therapeutic intervention, Prevent Disease Progression Activity Recommendations Activity Limitations: resume your previous activity Exercise/Sports Limitations: as tolerated . Instructions / Follow-Up Instructions / Follow-Up Patient to be discharged home with home health for physical therapy Please note several addition to medication list including: Xarelto 20 mg tablet to take once daily Toprol XL 50 mg tablet to take once daily Lisinopril 2.5 mg tablet to take once daily Spirolactone 25 mg tablet to take once daily Lipitor 40 mg tablet to take once daily Please follow up with pick up Dr Neff in 1-2 weeks Follow up with Whitney Sutherland in 1-2 weeks If worsening weakness, chest pain, palpitations, shortness of breath, numbness, difficulty speaking or swallowing please report to ER Risk Factors for Stroke: You can reduce your chances of stroke by working with your medical provider to adopt a healthy lifestyle. Some specific ways to lower your chance of stroke are: * If you are a smoker, now is the time to stop smoking cigarettes * If you are diabetic, improve the control of your blood sugars * Avoid excessive amounts of alcohol * Control high blood pressure * Lose weight if you are overweight * Be sure to lead an active lifestyle * Eat a healthy diet low in salt, cholesterol and fat You should know about other risk factors for stroke that you are unable to control. These include: * Age 55 years or older * Male gender * Certain racial groups: , or / * Family History of Stroke, Mini stroke or Heart Attack * Sickle Cell Disease Follow Up: It is important for you to keep your follow up appointments with your medical provider. Current Hospital Diet Patient's current hospital diet: AHA Diet (Heart Healthy) Discharge Diet Recommended Diet: AHA Diet (Heart Healthy) Pending Studies Studies pending at discharge: no Laboratory Results Hemoglobin A1c Test 12/20/16 11:34 Range/Units Estimated Average Glucose 123 mg/dl Hemoglobin A1c 5.9 H 4.5-5.6 % Lipid Panel Test 12/21/16 01:38 Range/Units Triglycerides Level 85 0-150 mg/dl Cholesterol Level 162 0-200 mg/dl HDL Cholesterol 46 mg/dl Cholesterol/HDL Ratio 3.5 LDL Cholesterol, Calculated 99 mg/dl Medical Emergencies . Who to Call and When: Medical Emergencies: Call 911 immediately if you experience any of the following warning signs and symptoms of Stroke: * Sudden numbness or weakness of the face, arm or leg, especially on one side of the body * Sudden confusion, trouble speaking or understanding * Sudden trouble seeing in one or both eyes * Sudden trouble walking, dizziness, loss of balance or coordination * Sudden severe headache with no cause Do not delay calling 911 if you experience any warning signs or symptoms of a stroke. Delay in seeking medical attention may affect what treatments can be given to you. . Non-Emergent Contact Non-Emergency issues call your: Primary Care Provider Call Non-Emergent contact if: you have any medication questions . . "Provider Documentation" section prepared by Alejandro Owusu. . Stroke Core Measures Reason no t-PA for Stroke: Treatment not indicated Reason no antithrom by day 2: Treatment provided - N/A Reason no antithrom at D/C: Treatment provided - N/A Reason no statin at D/C: Treatment provided - N/A Reason no anticoag w/a fib: Treatment provided - N/A VTE Core Measure Inpt VTE Proph given/why not?: Other Anticoagulation (xarelto)
[2016-12-23 12:24] VITALS: BP 127/88; PULSE 94; TEMP 36.7; O2SAT 98
--- NOTE | 2016-12-23 12:56 | Pharmacy Progress Note ---
Pharmacist Stroke Counseling Date of Service Dec 23, 2016. Scope Pharmacy has been consulted to provide medication discharge counseling for this patient admitted with ischemic stroke/hemorrhagic stroke/ transient ischemic attack as per the Pharmacist Discharge Counseling for Stroke Patients Protocol. Medications on Discharge New Medications: Atorvastatin (Atorvastatin Calcium) 40 Mg Tab 40 MG PO QAM, #30 TAB Lisinopril (Lisinopril) 2.5 Mg Tab 2.5 MG PO QAM, #30 TAB Metoprolol Succinate (Metoprolol Succinate ER) 50 Mg Tabcr 50 MG PO DAILY, #30 TABS Rivaroxaban (Xarelto) 20 Mg Tab 20 MG PO QDD, #30 TAB Spironolactone (Spironolactone) 25 Mg Tab 25 MG PO QAM, #30 TAB Action The above medications, specifically ones for stroke treatment/prophylaxis, have been reviewed in detail with the patient and/or patient farm loan representative(s) prior to discharge. This includes indication, common adverse reactions, drug interactions, and medication administration. Medication counseling has been employed using the teach-back method to ensure understanding. Outcome The patient and/or patient farm loan representative(s) have demonstrated understanding of the medications. Please note, they are aware that the pharmacist will call them within 72 hours post-discharge to confirm that the appropriate medications are being taken and answer any further medication related questions the patient might have at that time. Contact information Individual to be contacted: Afia Relationship to patient (if applicable): in Phone number: Best time to call: Afternoon Additional comments: Pt exhibited a strong understanding of his new medications. Thank you for allowing pharmacy to be involved in the care of this patient. Please call [phone] or [phone] with any additional questions
--- NOTE | 2016-12-23 12:57 | Discharge Summary ---
Discharge Summary Date of Service Dec 23, 2016. Discharge Summary Admission Date: Dec 20, 2016 at 13:23 Discharge Date: Dec 23, 2016 Discharge Disposition: Home with services Principal Diagnosis: Acute CVA Consultations: Neurology Cardiology Medication Reconciliation New Medications: Atorvastatin (Atorvastatin Calcium) 40 Mg Tab 40 MG PO QAM, #30 TAB Lisinopril (Lisinopril) 2.5 Mg Tab 2.5 MG PO QAM, #30 TAB Metoprolol Succinate (Metoprolol Succinate ER) 50 Mg Tabcr 50 MG PO DAILY, #30 TABS Rivaroxaban (Xarelto) 20 Mg Tab 20 MG PO QDD, #30 TAB Spironolactone (Spironolactone) 25 Mg Tab 25 MG PO QAM, #30 TAB Discharge Exam Review of Systems: Constitutional: No fever, No chills, No sweats, No weight loss, No weakness ENT: No hearing loss, No unusual epistaxis, No nasal symptoms, No sore throat Respiratory: No cough, No sputum, No wheezing, No shortness of breath, No dyspnea on exertion Cardiovascular: No chest pain, No orthopnea, No PND, No edema, No claudication Abdomen: No pain, No nausea, No vomiting, No diarrhea Musculoskeletal: No joint pain, No muscle pain, No swelling, No calf pain Genitourinary - Male: No hematuria, No dysuria, No urinary frequency, No urinary urgency Neurologic: + weakness (right upper ext weakness, diminished chemist helper strength) , No memory loss, No paralysis Psychiatric: No depression symptoms, No anhedonism, No anxiety, No insomnia Endocrine: No fatigue, No excessive thirst Integumentary: No rash, No itch Physical Exam: General Appearance: WD/WN, no apparent distress Eyes: normal inspection, PERRL, EOMI, sclerae normal ENT: normal ENT inspection, hearing grossly normal Neck: supple, no adenopathy, thyroid normal, no JVD Respiratory/Chest: chest non-tender, lungs clear, normal breath sounds, no respiratory distress Cardiovascular: no edema, no gallop, no JVD, + irregularly irregular Abdomen / GI: normal bowel sounds, non tender, soft, no organomegaly Extremities: normal inspection, no calf tenderness, normal capillary refill , no pedal edema Neurologic/Psychiatric: alert, normal mood/affect, normal reflexes, + motor weakness (diminished chemist helper strength left hand, numbness resolved) Skin: normal color, warm/dry, no rash Lymphatic: no adenopathy Hospital Course 56 y/o M who denies any significant medical history although he has not seen a physician in several years. The pt was at work when he became light-headed and then per his coworkers, exhibited slurred speech and a L facial droop. He describes L upper extremity weakness as well. His symptoms resolved after a few minutes and he is asymptomatic on arrival to the ER. Initial EKG reveals AF with a rate of ~115. He was not aware of palpitations and did not c/o any CP/ SOB. A CT head indicates that he suffered a remote frontal CVA - he does not recall any associated symptoms. Acute right frontal lobe CVA - likely associated with AF - MRI also noted old left sided frontal lobe infarct Head/neck MRA unremarkable ECHO diminished EF 30-35%, no PFO noted Admitted to telemetry Pt exhibited right upper extremity weakness and diminished chemist helper strength Neuro and cardiology consulted Started on xarelto 20 mg po daily and toprol XL 50 mg daily on discharge Started on spirolactone 25 mg po daily, atorvastatin 40 mg po daily and lisinopril 2.5 mg PO daily Speech eval, no trouble with swallowing, advanced to low cholesterol diet PT/OT rec home with home health F/U with cardiology in 1-2 weeks AF - placed on rate control and anticoagulation - Appreciate cardiology consultation. Rate controlled on toprol xl 50 mg daily Cont AC at this time. Likely cardioversion in future once anticoagulated for some time Full code Total Time Spent: Greater than 30 minutes This includes examination of the patient, discharge planning, medication reconciliation, and communication with other providers. Discharge Instructions Please refer to the electronic Patient Visit Report (Discharge Instructions) for additional information. Additional Copies To Whitney Sutherland .MICHELLE
--- NOTE | 2016-12-26 15:33 | Pharmacy Progress Note ---
Pharmacist Post D/C Phone Note Date of phone call: Dec 26, 2016. The patient and/or patient auto claim representative(s) were unable to be reached for a follow-up phone call within the 72 hour time frame. Discharge counseling pharmacist contact information has already been provided to the patient should questions arise. Thank you for allowing us to be involved in the care of this patient.
== END 2016-12-23 15:10 | disposition home health service (06) | DRG 66 ==
LOC: EDBD 11:20 → C.EDA 11:23 → C.2T 13:23 → ENRESERV 14:14
PROVIDERS: ADMIT Internal Medicine; ATTEND Hospitalist
DX: I63.8 Other cerebral infarction (principal); I48.91 Unspecified atrial fibrillation; I10 Essential (primary) hypertension

== ENCOUNTER → 2017-01-17 | Outpatient (CLI) | payer OTHER ==
[~2017-01-17] MED LIST: LPT40 PO; LSN25 PO; SPR25 PO; TPRSR50 PO; XRL20 PO
[2017-01-17 12:33] LABS: BLOOD UREA NITROGEN 19 mg/dl (7-18); BUN/CREATININE RATIO 17.7 (10-20); CALCIUM 9.5 mg/dl (8.5-10.1); CARBON DIOXIDE 27 mmol/L (21-32); CHLORIDE 102 mmol/L (98-107); GLUCOSE 153 mg/dl (70-99); MAGNESIUM 2.2 mg/dl (1.8-2.4); POTASSIUM 4.2 mmol/L (3.5-5.1); SODIUM 137 mmol/L (136-145)
== END | disposition home or self-care (01) ==
LOC: C.LAB1850 10:07
PROVIDERS: ATTEND Physician Assistant Medical
DX: I48.91 Unspecified atrial fibrillation (principal)

== ENCOUNTER → 2017-01-20 | Day surgery (SDC) | payer OTHER ==
[~2017-01-20] VITALS: Ht 167.6 cm; Wt 93.0 kg
[~2017-01-20] MED LIST changes: +PROPOFOL IV EMULSION 10 MG/ML 20 ML VIAL IV ONE
[2017-01-20 07:00] VITALS: BP 119/83; PULSE 0; TEMP 36.6; O2SAT 98; Ht 167.6 cm; Wt 93.0 kg
--- NOTE | 2017-01-20 07:13 | History & Physical Bridge Note ---
H&P Re-Evaluation Bridge Note: I have examined the patient, reviewed the History & Physical and in the interval since the performance of the History & Physical I have noted the following changes of clinical significance: PROCEDURE,RISKS,BENEFITS, ALTERNATIVES OF ELECTRICAL CARDIOVERSION DISCUSSED WITH PATIENT. HE AGREES AND CONSENTS TO THE PROCEDURE.No changes noted
[2017-01-20 07:26] VITALS: BP 123/81; PULSE 70; O2SAT 100
[2017-01-20 07:31] VITALS: BP 95/65; PULSE 65; O2SAT 100
[2017-01-20 07:35] VITALS: BP 95/65; PULSE 65; O2SAT 100
--- NOTE | 2017-01-20 07:36 | Anesthesiology Progress Note ---
Anesthesia Post Op Note Date & Time Jan 20, 2017 at 07:36 Vital Signs Pain Intensity: 0 Vital Signs Past 12 Hours Date Time Temp Pulse Resp B/P (MAP) Pulse Ox O2 Delivery O2 Flow Rate FiO2 01/20/17 07:26 70 16 123/81 100 Nasal Cannula 6 01/20/17 07:00 36.6 0 16 119/83 98 Room Air Notes Mental Status: alert / awake / arousable, participated in evaluation Pt Amnestic to Procedure: Yes Nausea / Vomiting: adequately controlled Pain: adequately controlled Airway Patency, RR, SpO2: stable & adequate BP & HR: stable & adequate Hydration State: stable & adequate Anesthetic Complications: no major complications apparent
--- NOTE | 2017-01-20 07:50 | Cardiology Procedure Brief Nt ---
Preliminary Cardiology Note Procedure Date Jan 20, 2017. Pre-Procedure Diagnosis Atrial fibrillation Post-Procedure Diagnosis Successful electrical cardioversion of atrial fibrillation to sinus rhythm Procedure(s) Performed Electrical cardioversion with 300 joules synchronixed biphasic energy . Anterior and posterior thoracic electrode pads. Initial shock of 200 joules unsuucessful. Synthetic Chemist [employer] Coordinator(s) NA Estimated Blood Loss NA Medication(s) IV propafol given by Dr. Jerez Preliminary Findings Successful cardioversion to sinus rhythm with 300 joules synchronized biphasic energy. Recommendations ad terminal makeup operator anticoagulation. Specimens NA Complication(s) None Disposition Patient to be discharged home.
[2017-01-20 08:15] VITALS: BP 105/63; PULSE 59; O2SAT 98
== END | disposition home or self-care (01) ==
LOC: C.CATH 06:05
PROVIDERS: ATTEND Internal Medicine Cardiovascular Disease
DX: I48.91 Unspecified atrial fibrillation (principal); I42.9 Cardiomyopathy, unspecified; I35.0 Nonrheumatic aortic (valve) stenosis; Z86.73 Personal history of transient ischemic attack (TIA), and cerebral infarction without residual deficits; Z79.01 Long term (current) use of anticoagulants

== ENCOUNTER 2017-05-15 12:55 | Observation (INO) | payer OTHER ==
[~2017-05-15] VITALS: Ht 167.6 cm; Wt 89.9 kg
[~2017-05-15 12:55] MED LIST changes: -PROPOFOL IV EMULSION 10 MG/ML 20 ML VIAL IV ONE
[2017-05-15 14:24] LABS: BASO % 0.4 %; BASO ABS # 0.04 K/uL (0-0.2); EOS % 0.7 %; EOS ABS # 0.07 K/uL (0-0.5); HEMATOCRIT 44.5 % (42-52); HEMOGLOBIN 16.5 g/dL (14.0-18.0); IG# 0.02 K/uL (0.00-0.02); LYMPH % 18.3 %; LYMPH ABS # 1.93 K/uL (1.2-3.4); MEAN CELL VOLUME 90.1 fL (80-100); MEAN CORPUSCULAR HEMOGLOBIN 33.4 pg (25-34); MEAN CORPUSCULAR HGB CONC 37.1 g/dl (32-36); MEAN PLATELET VOLUME 11.8 fL (7.4-10.4); MONO % 5.8 %; MONO ABS # 0.61 K/uL (0.11-0.59); NEUT % 74.6 %; NEUT ABS # 7.88 K/uL (1.4-6.5); PLATELET COUNT 202 K/uL (130-400); RED CELL DISTRIBUTION WIDTH CV 11.9 % (11.5-14.5); RED CELL DISTRIBUTION WIDTH SD 39.1 fL (36.4-46.3); WHITE BLOOD COUNT 10.55 K/uL (4.8-10.8)
--- NOTE | 2017-05-15 14:32 | DIAGNOSTIC IMAGING REPORT ---
CHEST ONE VIEW PORTABLE CLINICAL HISTORY: 57 years-old Male presenting with Chest Pain. TECHNIQUE: Portable upright AP view of the chest was obtained. COMPARISON: 12/20/2016. FINDINGS: Atherosclerosis of the aortic arch. Cardiac silhouette normal in size. Lungs and pleural spaces clear. Degenerative changes of the thoracic spine. Upper abdomen normal. IMPRESSION: 1. No acute cardiopulmonary disease. Electronically signed by: Francisco Aceves M.D. 05/15/2017 2:30 PM Dictated Date/Time: 05/15/2017 2:29 PM
[2017-05-15 14:40] LABS: BLOOD UREA NITROGEN 19 mg/dl (7-18); CALCIUM 9.4 mg/dl (8.5-10.1); CARBON DIOXIDE 26 mmol/L (21-32); CREATININE 1.03 mg/dl (0.60-1.40); GLUCOSE 132 mg/dl (70-99); POTASSIUM 4.2 mmol/L (3.5-5.1); SODIUM 134 mmol/L (136-145)
[2017-05-15] MEDS ORDERED: ASPI81TA28 PO (14:56)
[2017-05-15] MEDS ORDERED: ASPIRIN 81 MG CHEW PO STA (15:03)
[2017-05-15] MEDS ORDERED: SODIUM CHLORIDE 0.9% 1000ML 1,000 ML IV STA (15:03)
[2017-05-15 15:56] VITALS: O2SAT 99; Ht 167.6 cm; Wt 89.9 kg
[2017-05-15] MEDS ORDERED: MAGNESIUM HYDROXIDE SUSP 30 ML UDC PO PRN (16:00)
[2017-05-15] MEDS ORDERED: POLYETHYLENE (MIRALAX) 17 GM PACK PO PRN (16:00)
[2017-05-15] MEDS ORDERED: ALUMINUM/MAGNESIUM/SIMETH (MAALOX MAX) 30 ML UDC PO PRN (16:00)
[2017-05-15] MEDS ORDERED: MoRPHine SULFATE 2 MG/ML CARP IV PRN (16:00)
[2017-05-15] MEDS ORDERED: ONDANSETRON INJ 2 MG/ML 2 ML VIAL IV PRN (16:00)
[2017-05-15] MEDS ORDERED: NITROGLYCERIN 0.4 MG SL PER TAB CHARGE SL PRN (16:00)
[2017-05-15] MEDS ORDERED: ACETAMINOPHEN 325 MG TAB PO PRN (16:00)
--- NOTE | 2017-05-15 16:05 | History and Physical ---
History & Physical Date & Time of Service: May 15, 2017 at 15:54 Chief Complaint: Shortness Of Breath, Tired Feeling Primary Care Physician: Whitney Sutherland .MICHELLE History of Present Illness Source: patient, clinic records, hospital records Patient is a pleasant 57 y/o male, with PMHx of paroxysmal a.fib, cardiomyopathy w/ EF of 30-35%, CVA, HLD, HTN, who presented to the ED because of SOB x4 days. Patient notices his SOB more at night before he is going to bed. He denies worsening SOB w/ activity. He notes it feels like he cannot take a deep breath. He was seen at [facility] ED because of a CVA in 12/2016. He was found to have a.fib at that time. He was successfully cardioverted by Dr. Neff in 2016. In ED, patient was found to be in a.fib w/ rate controlled. He follows w/ Kip Manny. He is eating and drinking OK. No cold-like symptoms. No body aches. Patient denies any fever, chills, sweats, lightheadedness, dizziness, vision changes, CP, palpitations, edema, wheezing, cough, abdominal pain, nausea, vomiting, diarrhea, urinary symptoms, melena, numbness/tingling, weakness, muscle/joint pain, anxiety/depression, active bleeding, or new skin discoloration/changes. Past Medical/Surgical History Medical Problems: paroxysmal a.fib cardiomyopathy w/ EF of 30-35% CVA HLD HTN Family History Atrial fibrillation Social History Smoking Status: Never Smoker Alcohol Use: occasionally Occupational Status: employed Allergies Coded Allergies: No Known Allergies (Unverified , 05/15/17) Home Medications Scheduled Aspirin (Aspirin Ec), 81 MG PO DAILY Atorvastatin (Lipitor), 40 MG PO QAM Lisinopril (Lisinopril), 2.5 MG PO QAM Metoprolol Succinate (Metoprolol Succinate ER), 50 MG PO DAILY Rivaroxaban (Xarelto), 20 MG PO QDD Spironolactone (Spironolactone), 25 MG PO QAM Physical Exam Vital Signs Date Time Temp Pulse Resp B/P (MAP) Pulse Ox O2 Delivery O2 Flow Rate FiO2 05/15/17 14:57 65 16 104/76 99 Room Air 05/15/17 14:30 75 05/15/17 13:28 98 Room Air 05/15/17 13:25 36.8 83 18 114/70 98 Room Air General Appearance: no apparent distress, + obese Head: normocephalic, atraumatic Eyes: normal inspection, PERRL ENT: hearing grossly normal Neck: supple, no JVD Respiratory/Chest: lungs clear, no respiratory distress, no accessory muscle use Cardiovascular: + irregularly irregular (rate controlled ) Abdomen/GI: normal bowel sounds, non tender, soft Back: normal inspection Extremities/Musculoskelatal: no calf tenderness, no pedal edema Neurologic/Psych: alert, normal mood/affect, oriented x 3 Skin: normal color, warm/dry, no rash Diagnostics Laboratory Results Results Past 24 Hours Test 05/15/17 14:14 Range/Units White Blood Count 10.55 4.8-10.8 K/uL Red Blood Count 4.94 4.7-6.1 M/uL Hemoglobin 16.5 14.0-18.0 g/dL Hematocrit 44.5 42-52 % Mean Corpuscular Volume 90.1 80-100 fL Mean Corpuscular Hemoglobin 33.4 25-34 pg Mean Corpuscular Hemoglobin Concent 37.1 32-36 g/dl Platelet Count 202 130-400 K/uL Mean Platelet Volume 11.8 7.4-10.4 fL Neutrophils (%) (Auto) 74.6 % Lymphocytes (%) (Auto) 18.3 % Monocytes (%) (Auto) 5.8 % Eosinophils (%) (Auto) 0.7 % Basophils (%) (Auto) 0.4 % Neutrophils # (Auto) 7.88 1.4-6.5 K/uL Lymphocytes # (Auto) 1.93 1.2-3.4 K/uL Monocytes # (Auto) 0.61 0.11-0.59 K/uL Eosinophils # (Auto) 0.07 0-0.5 K/uL Basophils # (Auto) 0.04 0-0.2 K/uL RDW Standard Deviation 39.1 36.4-46.3 fL RDW Coefficient of Variation 11.9 11.5-14.5 % Immature Granulocyte % (Auto) 0.2 % Immature Granulocyte # (Auto) 0.02 0.00-0.02 K/uL Sodium Level 134 136-145 mmol/L Potassium Level 4.2 3.5-5.1 mmol/L Chloride Level 101 98-107 mmol/L Carbon Dioxide Level 26 21-32 mmol/L Anion Gap 7.0 3-11 mmol/L Blood Urea Nitrogen 19 7-18 mg/dl Creatinine 1.03 0.60-1.40 mg/dl Est Creatinine Clear Calc Drug Dose 82.8 ml/min Estimated GFR () 93.0 Estimated GFR (Non- 80.3 BUN/Creatinine Ratio 18.3 10-20 Random Glucose 132 70-99 mg/dl Calcium Level 9.4 8.5-10.1 mg/dl Troponin I < 0.015 0-0.045 ng/ml Diagnostic Radiology CHEST ONE VIEW PORTABLE CLINICAL HISTORY: 57 years-old Male presenting with Chest Pain. TECHNIQUE: Portable upright AP view of the chest was obtained. COMPARISON: 12/20/2016. FINDINGS: Atherosclerosis of the aortic arch. Cardiac silhouette normal in size. Lungs and pleural spaces clear. Degenerative changes of the thoracic spine. Upper abdomen normal. IMPRESSION: 1. No acute cardiopulmonary disease. Electronically signed by: Francisco Aceves M.D. 05/15/2017 2:30 PM Dictated Date/Time: 05/15/2017 2:29 PM The status of this report is Signed. Draft = Not yet reviewed or approved by Radiologist. Signed = Reviewed and approved by Radiologist. EKG MARISSA JUDGE ID:[id number] 15-MAY-2017 13:32:02 [facility] Atrial fibrillation Nonspecific ST abnormality Abnormal ECG When compared with ECG of 21-DEC-2016 06:33, T wave inversion no longer evident in Lateral leads Confirmed by Venancio Quintana ([id number]) on 05/15/2017 2:15:19 PM 25mm/s 10mm/mV 150Hz 8.0 SP2 12SL 241 DIPIKA: 0 Referred by: ED Confirmed By: Venancio Chairez. rate 77 BPM DE interval * ms QRS duration 78 ms QT/QTc 366/414 ms P-R-T axes * 49 92 1960 (57 yr) Male Room: Loc:15 Solar Process Engineer:DELORIS Sánchez ind: Impression Assessment and Plan Patient is a pleasant 57 y/o male, with PMHx of paroxysmal a.fib, cardiomyopathy w/ EF of 30-35%, CVA, HLD, HTN, who presented to the ED because of SOB x4 days. SOB, a.fib w/ rates controlled: - Admit to tele for cardiac monitoring - O2 protocol - Trend cardiac enzymes- initial enzymes negative - EKG w/out acute ischemic changes; follow QAM and PRN for chest pain - IV Morphine and Nitro PRN for chest pain - Continue ASA 81 mg daily, Metoprolol 50 mg daily, Xarelto 25 mg daily - CXR w/out acute cardiopulmonary processes - Will make NPO after MD mims cardiology would like to workup/intervention - Consult cardiology, appreciate recommendations Paroxysmal a.fib, cardiomyopathy w/ EF of 30-35%, CVA, HLD, HTN- follows w/ Kip Manny: - ASA 81 mg daily, Metoprolol 50 mg daily, Xarelto 25 mg daily, Lisinopril 2.5 mg daily, Aldactone 25 mg daily DVT prophylaxis: Xarelto Code status: LEVEL I, FULL Dispo: From home- no discharge needs anticipated Level of Care Telemetry Resuscitation Status FULL RESUSCITATION VTE Prophylaxis VTE Risk Assessment Done? Y/N: Yes Risk Level: Moderate Given or contraindicated: Other Anticoagulation Note Attending Admission Note & Attestation: Pt seen/examined, chart reviewed, care plan d/w SHAR Callejas. I agree w/ the gay components of her documentation. 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 He denies any orthopnea, PND, LE edema, weight gain, palpitations, chest pain, or exertional dyspnea on exertion. At ER presentation today found to be in rate-controlled a. fib. He takes his xarelto faithfully every day. PMH, PSH, allergies, meds, sochx, famhx, ros- reviewed gen - nad neck - no JVD heart - irregular, s1, s2, no murmur lungs - CTA b/l abd - soft, NT, no HSM, no hepatojugular reflex, BS+ ext - no edema trop negative Na 134 EKG with a. fib, no ST changes CXR - normal A/P: 57yo male w/ h/o PAF, s/p cardioversion fall 2016, chronic systolic CHF, prior stroke, HTN - presenting with nocturnal symptom of inability to take a deep breath. Has had NO ischemic symptoms and NO CHF symptoms. Is it possible that his current presenting symptom, however, is somehow due to recurrent a. fib? No symptoms to suggest VTE either. Discussed his case with SHAR Carmona, who knows him well from the outpatient clinic. Plan - serial troponins but suspect these will be negative telemetry if still in a. fib tomorrow AM then elective cardioversion at that time cont xarelto mild hyponatremia - likely due to chronic diuretic use. NPO after CHRISTOFER ARNETT MD
[2017-05-15] MEDS ORDERED: IV FLUIDS COMPLETED PRN (16:15)
[2017-05-15 17:00] VITALS: BP 134/78; PULSE 76; TEMP 36.6; O2SAT 99
[2017-05-15] MEDS ORDERED: RIVAROXABAN 20 MG TAB PO SCH (17:30)
[2017-05-15 19:15] VITALS: BP 98/54; PULSE 70; TEMP 36.6; O2SAT 99
[2017-05-15 20:00] VITALS: O2SAT 99
--- NOTE | 2017-05-15 20:56 | EMERGENCY ROOM VISIT NOTE ---
History Report prepared by Doris: Randa Reveles Under the Supervision of: Dr. Sunny Aguilera D.O. First contact with patient: 13:51 Chief Complaint: SHORTNESS OF BREATH Stated Complaint: SHORTNESS OF BREATH, TIRED FEELING Nursing Triage Summary: pt c/o SOB, chest tightness, difficulty taking deep breath, fatigue. Ongoing for the past several days. Pt has echo scheduled 06/20, f/u for a-fib. History of Present Illness The patient is a 57 year old male who presents to the Emergency Room with complaints of intermittent SOB starting 4 days ago. The patient has been feeling like he needs to take deep breaths with exertion. He has felt this while walking uphill to get the mail. He has some chest pressure with this SOB. Both the chest pressure and SOB resolve after exertion. He also reports feeling run down and fatigued. He denies any arm pain, jaw pain, cough, rhinorrhea, nausea, vomiting, abdominal pain, change of vision, headache, or weight gain. He had an episode of atrial fibrillation 4 months ago. He was cardioverted at that time and to his knowledge, has been in a normal rhythm since then. His symptoms today do not feel like his previous episode of atrial fibrillation. He denies any history of heart disease, OH, hypertension, blood clots, problems with his aorta, or diabetes. He has a history of high cholesterol. He does not smoke. He is on Xarelto. He denies any missed doses. Source of History: patient Onset: 4 days ago Position: other (global) Quality: other (SOB) Timing: intermittent Modifying Factors (Worsening): exertion Associated Symptoms: + chest pain, + fatigue, No headache, No cough, No nausea, No vomiting, No abdominal pain Review of Systems See HPI for pertinent positives & negatives. A total of 10 systems reviewed and were otherwise negative. Past Medical & Surgical Medical Problems: (1) A-fib (2) Atrial fibrillation with rapid ventricular response (3) No significant active problems (4) SOB (shortness of breath) (5) TIA (transient ischemic attack) Family History Atrial fibrillation Social History Smoking Status: Never Smoker Occupation Status: employed Current/Historical Medications Scheduled Aspirin (Aspirin Ec), 81 MG PO DAILY Atorvastatin (Lipitor), 40 MG PO QAM Lisinopril (Lisinopril), 2.5 MG PO QAM Metoprolol Succinate (Metoprolol Succinate ER), 50 MG PO DAILY Rivaroxaban (Xarelto), 20 MG PO QDD Spironolactone (Spironolactone), 25 MG PO QAM Allergies Coded Allergies: No Known Allergies (Unverified , 05/15/17) Physical Exam Vital Signs Date Time Temp Pulse Resp B/P (MAP) Pulse Ox O2 Delivery O2 Flow Rate FiO2 05/15/17 17:00 36.6 76 20 134/78 (96) 99 Room Air 05/15/17 17:00 99 Room Air 05/15/17 16:33 89 16 118/82 96 05/15/17 15:56 99 Room Air 05/15/17 14:57 65 16 104/76 99 Room Air 05/15/17 14:30 75 05/15/17 13:28 98 Room Air 05/15/17 13:25 36.8 83 18 114/70 98 Room Air Physical Exam GENERAL: Sitting up in bed, no acute distress, nontoxic, talking in full sentences EYE EXAM: normal conjunctiva. OROPHARYNX: no exudate, no erythema, lips, buccal mucosa, and tongue normal and mucous membranes are moist NECK: supple, no nuchal rigidity, no adenopathy, non-tender LUNGS: Clear to auscultation. Normal chest wall mechanics HEART: no murmurs, S1 normal and S2 normal ABDOMEN: abdomen soft, non-tender, normo-active bowel sounds, no masses, no rebound or guarding. BACK: Back is symmetrical on inspection and there is no deformity, no midline tenderness, no CVA tenderness. SKIN: no rashes and no bruising UPPER EXTREMITIES: upper extremities are grossly normal. LOWER EXTREMITIES: No pitting edema. Calves equal bilaterally. NEURO EXAM: Normal sensorium, cranial nerves II-XII grossly intact, normal speech, no gross weakness of arms, no gross weakness of legs. Medical Decision & Procedures ER Provider Diagnostic Interpretation: Xray results as stated below per my and the radiologist's interpretation: CHEST ONE VIEW PORTABLE CLINICAL HISTORY: 57 years-old Male presenting with Chest Pain. TECHNIQUE: Portable upright AP view of the chest was obtained. COMPARISON: 12/20/2016. FINDINGS: Atherosclerosis of the aortic arch. Cardiac silhouette normal in size. Lungs and pleural spaces clear. Degenerative changes of the thoracic spine. Upper abdomen normal. IMPRESSION: 1. No acute cardiopulmonary disease. Electronically signed by: Francisco Aceves M.D. 05/15/2017 2:30 PM Dictated Date/Time: 05/15/2017 2:29 PM Laboratory Results 05/15/17 14:14 Red Blood Count 4.94, Mean Corpuscular Volume 90.1, Mean Corpuscular Hemoglobin 33.4, Mean Corpuscular Hemoglobin Concent 37.1, Mean Platelet Volume 11.8, Neutrophils (%) (Auto) 74.6, Lymphocytes (%) (Auto) 18.3, Monocytes (%) (Auto) 5.8, Eosinophils (%) (Auto) 0.7, Basophils (%) (Auto) 0.4, Neutrophils # (Auto) 7.88, Lymphocytes # (Auto) 1.93, Monocytes # (Auto) 0.61, Eosinophils # (Auto) 0.07, Basophils # (Auto) 0.04 05/15/17 14:14 Test 05/15/17 14:14 White Blood Count 10.55 K/uL (4.8-10.8) Red Blood Count 4.94 M/uL (4.7-6.1) Hemoglobin 16.5 g/dL (14.0-18.0) Hematocrit 44.5 % (42-52) Mean Corpuscular Volume 90.1 fL (80-100) Mean Corpuscular Hemoglobin 33.4 pg (25-34) Mean Corpuscular Hemoglobin Concent 37.1 g/dl (32-36) Platelet Count 202 K/uL (130-400) Mean Platelet Volume 11.8 fL (7.4-10.4) Neutrophils (%) (Auto) 74.6 % Lymphocytes (%) (Auto) 18.3 % Monocytes (%) (Auto) 5.8 % Eosinophils (%) (Auto) 0.7 % Basophils (%) (Auto) 0.4 % Neutrophils # (Auto) 7.88 K/uL (1.4-6.5) Lymphocytes # (Auto) 1.93 K/uL (1.2-3.4) Monocytes # (Auto) 0.61 K/uL (0.11-0.59) Eosinophils # (Auto) 0.07 K/uL (0-0.5) Basophils # (Auto) 0.04 K/uL (0-0.2) RDW Standard Deviation 39.1 fL (36.4-46.3) RDW Coefficient of Variation 11.9 % (11.5-14.5) Immature Granulocyte % (Auto) 0.2 % Immature Granulocyte # (Auto) 0.02 K/uL (0.00-0.02) Anion Gap 7.0 mmol/L (3-11) Est Creatinine Clear Calc Drug Dose 82.8 ml/min Estimated GFR () 93.0 Estimated GFR (Non- 80.3 BUN/Creatinine Ratio 18.3 (10-20) Calcium Level 9.4 mg/dl (8.5-10.1) Troponin I < 0.015 ng/ml (0-0.045) Laboratory results per my review. Medications Administered Medications (Trade) Dose Ordered Sig/[place] Route Start Time Stop Time Status Last Admin Dose Admin Aspirin (Aspirin Chew) 324 mg NOW STAT PO 05/15/17 15:03 05/15/17 15:04 DC 05/15/17 15:24 324 MG Sodium Chloride 1,000 ml @ 999 mls/hr Q1H1M STAT IV 05/15/17 15:03 05/15/17 16:03 DC 05/15/17 15:22 999 MLS/HR ECG Indication: SOB/dyspnea Rate (beats per minute): 77 Rhythm: atrial flutter (variable block) Findings: nonspecific-ST abn (Inferior), Q waves (Septal), other (normal axis) Comparison ECG Date: 21-Dec-2016 Change: no significant change Change: Patient's electrocardiogram interpreted by me. ED Course ED COURSE: Vital signs were reviewed and showed normal vitals. The patients medical record was reviewed The above diagnostic studies were performed and reviewed. ED treatments and interventions as stated above. 1354: The patient was evaluated in room B10. A complete history and physical examination was performed. 1503: NSS 1000 ml @ 999 mls/hr IV, Aspirin 324 mg PO. 1502: Upon reevaluation, the patient has no complaints. I discussed my findings with the patient and he understands and agrees with the treatment plan. Based on the patients age, coexisting illnesses, exam and lab findings the decision to treat as an inpatient was made. The patient remained stable while under my care. The patient will be evaluated for further management. 1507: I reviewed the patient's case with Dr. Oliva [facility] hospitalist. He will evaluate the patient for further management. Medical Decision Differential diagnoses includes but is not limited to pneumonia, bronchitis, COPD/Asthma exacerbation, pneumothorax, pulmonary embolism, congestive heart failure, acute coronary syndrome Patient is a 57-year-old male who presents to ER for shortness of breath and chest pressure associated with exertion. He has a family history of hyperlipidemia, and OH. He is on Xarelto. He has not missed any doses. He takes this for atrial fibrillation. He was last cardioverted in January. Since then he denies any complaints. EKG shows a flutter with a variable block. CBC and BMP was fairly unremarkable. Troponin was negative. EKG did show a new atrial flutter as he was in a sinus rhythm previously. I favor symptoms are likely secondary to being in atrial flutter with a variable block and losing his atrial kick cannot be certain versus ischemia. Discussed with patient and internal medicine for further workup. Medication Reconcilliation Current Medication List: was personally reviewed by me Blood Pressure Screening Patient's blood pressure: Normal blood pressure Blood pressure disposition: Did not require urgent referral Consults Time Called: 1505 Consulting Physician: Dr. Oliva [facility] [place] Returned Call: 1507 I reviewed the patient's case with him. He will evaluate the patient for further management. Impression Primary Impression: Exertional chest pain Additional Impressions: SOB (shortness of breath) Atrial flutter Scribe Attestation The scribe's documentation has been prepared under my direction and personally reviewed by me in its entirety. I confirm that the note above accurately reflects all work, treatment, procedures, and medical decision making performed by me. Departure Information Dispostion Being Evaluated By Hospitalist Referrals No Doctor, Assigned (PCP) Patient Instructions My [facility] Problem Qualifiers Additional Impressions: Atrial flutter Atrial flutter type: typical Qualified Codes: I48.3 - Typical atrial flutter
[2017-05-15 22:26] LABS: CKMB 1.1 ng/ml (0.5-3.6)
[2017-05-16] VITALS (12 sets, daily range): BP systolic 104–121; BP diastolic 60–81; PULSE 59–79; TEMP 36.4–36.9; O2SAT 95–98
[2017-05-16 07:18] LABS: CKMB 1.1 ng/ml (0.5-3.6)
--- NOTE | 2017-05-16 08:41 | Cardiology Consultation ---
Cardiology Consultation Date of Consultation: May 16, 2017. Requesting Physician: Dr. 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 He had electrical cardioversion on 01/20/2017 and has been maintained on Toprol- XL 50 mg daily and Xarelto for rate control and anticoagulation. He is also on lisinopril and spironolactone for his cardiomyopathy. His left ventricular ejection fraction by echocardiography on 12/21/2016 (when he presented with atrial fibrillation) was 30-35% with global hypokinesis. He also had mild left ventricular hypertrophy and mild left atrial dilatation. His presentation in December 2016 was for TIA/CVA symptoms, CT scanning showed evidence of prior infarctions which were presumably from his untreated atrial fibrillation. At that time he had no symptoms of his atrial fibrillation specifically and therefore the duration of his arrhythmia is unknown. To his knowledge he has remained in sinus rhythm but began to feel a little bit unusual around 4 days ago, it was mostly when he got up to do something he would feel funny sensation in his chest which was not chest discomfort or shortness of breath. With activity he had no symptoms. When the symptoms persisted he came into the emergency room on 05/15/2017 and was found to be in atrial fibrillation. He was therefore admitted. He has been taking his Xarelto and feels that he has not missed any doses. He denies any neurologic symptoms such as weakness, slurred speech, visual defects. At the time I evaluation this morning he feels well, he has had no further symptoms while in the hospital. He has not eaten anything after midnight and had nothing to drink this morning. Past Medical/Surgical History Persistent atrial fibrillation Cardiomyopathy Family History Atrial fibrillation Social History Smoking Status: Never Smoker History of Alcohol Use: Yes (OCC BEER) Review of Systems Constitutional: No fever, No weight loss, No weakness Respiratory: No cough, No wheezing, No shortness of breath, No dyspnea on exertion Cardiac: + see HPI, No chest pain, No orthopnea, No PND, No edema, No palpitations Abdomen: No pain, No nausea, No vomiting, No diarrhea, No GI bleeding Male : No urinary frequency, No nocturia more than once/night, No slowing stream, No sexual dysfunction Neurologic: No paralysis, No weakness, No numbness/tingling, No balance problems Heme: No abnormal bleeding/bruising, No clotting problems Endo: No fatigue Skin: No problem reported All Other Systems: Reviewed and Negative Allergies Coded Allergies: No Known Allergies (Unverified , 05/15/17) Medications Current Inpatient Medications Medications (Trade) Dose Ordered Sig/[place] Route Start Time Stop Time Status Last Admin Dose Admin Acetaminophen (Tylenol Tab) 650 mg Q4H PRN PO 05/15/17 16:00 06/14/17 15:59 Al Hydrox/Mg Hydrox/Simethicone (Maalox Max Susp) 15 ml Q4H PRN PO 05/15/17 16:00 06/14/17 15:59 Magnesium Hydroxide (Milk Of Magnesia Susp) 30 ml Q12H PRN PO 05/15/17 16:00 06/14/17 15:59 Ondansetron HCl (Zofran Inj) 4 mg Q6H PRN IV 05/15/17 16:00 06/14/17 15:59 Nitroglycerin (Nitrostat Tab) 0.4 mg UD PRN SL 05/15/17 16:00 06/14/17 15:59 Morphine Sulfate (MoRPHine SULFATE INJ) 2 mg Q30M PRN IV 05/15/17 16:00 05/29/17 15:59 Polyethylene (Miralax Powder Packet) 17 gm DAILY PRN PO 05/15/17 16:00 06/14/17 15:59 Aspirin (Ecotrin Tab) 81 mg DAILY PO 05/16/17 09:00 06/15/17 08:59 05/16/17 08:14 81 MG Atorvastatin Calcium (Lipitor Tab) 40 mg QAM PO 05/16/17 09:00 06/15/17 08:59 05/16/17 08:15 40 MG Lisinopril (Zestril Tab) 2.5 mg QAM PO 05/16/17 09:00 06/15/17 08:59 05/16/17 08:13 2.5 MG Metoprolol Succinate (Toprol Xl Tab) 50 mg DAILY PO 05/16/17 09:00 06/15/17 08:59 05/16/17 08:14 50 MG Rivaroxaban (Xarelto Tab) 20 mg QDD PO 05/15/17 17:30 06/14/17 17:29 05/15/17 18:19 20 MG Spironolactone (Aldactone Tab) 25 mg QAM PO 05/16/17 09:00 06/15/17 08:59 05/16/17 08:15 25 MG Miscellaneous (Iv Fluids Completed) 1 ea PRN PRN N/A 05/15/17 16:15 05/15/18 16:14 Physical Exam Vital Signs Past 12 Hours Date Time Temp Pulse Resp B/P (MAP) Pulse Ox O2 Delivery O2 Flow Rate FiO2 05/16/17 04:00 Room Air 05/16/17 03:14 36.5 59 17 113/64 (80) 98 Room Air 05/16/17 00:01 Room Air 05/16/17 00:00 36.4 60 17 104/69 (81) 98 Room Air Constitutional: General Apperance: heathly-appearing Level of Distress: NAD Psychiatric: Mental Status: active & alert Head: normocephalic Eyes: EOM: EOMI ENMT: normal ENT inspection, hearing grossly normal Neck: supple, no masses Lungs: Respiratory effort: no dyspnea, good air movement Auscultation: breath sounds normal, no wheezing Cardiovascular: Heart Auscultation: no murmurs, no rubs, no gallops, irregular rate rhythm Peripheral Pulses: Bruits: none appreciated Abdomen: Bowel Sounds: normal Inspection & Palpation: soft, no tenderness, guarding & rebound, no masses Musculoskeletal: normal strength (5/5 throughout) Extremities: no edema Neurologic: Cranial Nerves: grossly intact Sensation: grossly intact Data Laboratory Results: Last 24 Hours Test 05/15/17 14:14 05/15/17 21:55 05/16/17 06:00 05/16/17 06:11 White Blood Count 10.55 K/uL Red Blood Count 4.94 M/uL Hemoglobin 16.5 g/dL Hematocrit 44.5 % Mean Corpuscular Volume 90.1 fL Mean Corpuscular Hemoglobin 33.4 pg Mean Corpuscular Hemoglobin Concent 37.1 g/dl Platelet Count 202 K/uL Mean Platelet Volume 11.8 fL Neutrophils (%) (Auto) 74.6 % Lymphocytes (%) (Auto) 18.3 % Monocytes (%) (Auto) 5.8 % Eosinophils (%) (Auto) 0.7 % Basophils (%) (Auto) 0.4 % Neutrophils # (Auto) 7.88 K/uL Lymphocytes # (Auto) 1.93 K/uL Monocytes # (Auto) 0.61 K/uL Eosinophils # (Auto) 0.07 K/uL Basophils # (Auto) 0.04 K/uL RDW Standard Deviation 39.1 fL RDW Coefficient of Variation 11.9 % Immature Granulocyte % (Auto) 0.2 % Immature Granulocyte # (Auto) 0.02 K/uL Sodium Level 134 mmol/L Potassium Level 4.2 mmol/L Chloride Level 101 mmol/L Carbon Dioxide Level 26 mmol/L Anion Gap 7.0 mmol/L Blood Urea Nitrogen 19 mg/dl Creatinine 1.03 mg/dl Est Creatinine Clear Calc Drug Dose 82.8 ml/min Estimated GFR () 93.0 Estimated GFR (Non- 80.3 BUN/Creatinine Ratio 18.3 Random Glucose 132 mg/dl Calcium Level 9.4 mg/dl Troponin I < 0.015 ng/ml < 0.015 ng/ml < 0.015 ng/ml Creatine Kinase MB 1.1 ng/ml 1.1 ng/ml Creatine Kinase MB Ratio Imaging: Chest x-ray shows no acute disease EKG: His electrocardiogram in the emergency room on 05/15/2017 at 1332 shows atrial fibrillation at a heart rate is 77 bpm, no acute changes. Telemetry reviewed: Atrial fibrillation with a controlled heart rate Assessment & Plan #1. Recurrent atrial fibrillation: Based on symptoms it is likely his atrial fibrillation occurred about 4 days ago, however his symptoms are not very noticeable to him and therefore the precise time is not clear. He has been anticoagulated however therefore he is protected from left atrial thrombus. I think it would be reasonable to convert his rhythm. I discussed the indications , procedure, risks and alternatives and he understands and agrees to proceed. Consent obtained. At this point were waiting for anesthesia to get a time, hopefully today. #2. Cardiomyopathy: He had a significant cardiac myopathy at the time of his presentation, he does not have much the way of heart failure symptoms however before performing cardioversion I would like to assess his left ventricular function. I'm therefore going to get a limited echo to look at his left ventricular function prior to cardioversion. #3. CVA: At the time of his initial presentation he was observed to have prior CVAs, presumably from atrial fibrillation although cryptogenic, he presented with neurologic symptoms. He has had no further neurologic symptoms on anticoagulation. Thank you for allowing me to participate in his care.
[2017-05-16] MEDS ORDERED: SPIRONOLACTONE 25 MG TAB PO SCH (09:00)
[2017-05-16] MEDS ORDERED: METOPROLOL SUCC 50MG EXT REL TAB PO SCH (09:00)
[2017-05-16] MEDS ORDERED: LISINOPRIL 2.5 MG TAB PO SCH (09:00)
[2017-05-16] MEDS ORDERED: ATORVASTATIN 40 MG TAB PO SCH (09:00)
[2017-05-16] MEDS ORDERED: ASPIRIN 81 MG ECTAB PO SCH (09:00)
[2017-05-16] MEDS ORDERED: PERFLUTREN LIPID MICROSPHERE (DEFINITY) IV ONE (09:34)
[2017-05-16] MEDS ORDERED: LIDOCAINE HCL 2% 2 ML VIAL (20MG/ML) ONE (09:57)
[2017-05-16] MEDS ORDERED: PROPOFOL IV EMULSION 10 MG/ML 20 ML VIAL IV ONE (09:57)
--- NOTE | 2017-05-16 10:16 | Cardioversion ---
Electricial Cardioversion Rpt Date of Service: 05/16/2017 Electrical Cardioversion Rprt The patient was brought to the laboratory being NPO after midnight and was identified in the laboratory, connected to the recording apparatus including electrocardiographic monitoring, noninvasive blood pressure monitoring and pulse oximetry. Anteroposterior patch electrodes were placed. The patient was anesthetized by the anesthesia department. Once adequate anesthesia was obtained a synchronized biphasic shock was delivered using 200 J with conversion to a sinus rhythm. He reverted back to atrial fibrillation after only several seconds, therefore another synchronized biphasic shock was delivered at 200 J with conversion to sinus rhythm once again. Once again however he reverted back to atrial fibrillation after a number of seconds, less than 1 minute. Since the shocks were successful in converting the rhythm but he did not maintain SR no further cardioversions were performed. The patient awoke from the anesthetic without sequela, will be observed briefly and then returned to his room.
--- NOTE | 2017-05-16 10:22 | Anesthesiology Progress Note ---
Anesthesia Post Op Note Date & Time May 16, 2017 at 10:21 Vital Signs Pain Intensity: 0 Vital Signs Past 12 Hours Date Time Temp Pulse Resp B/P (MAP) Pulse Ox O2 Delivery O2 Flow Rate FiO2 05/16/17 10:17 75 16 105/75 98 Room Air 05/16/17 10:15 79 16 105/75 98 Room Air 05/16/17 10:10 79 16 117/81 98 Room Air 05/16/17 10:09 79 16 117/81 98 Room Air 05/16/17 10:08 79 16 113/79 98 Room Air 05/16/17 08:00 Room Air 05/16/17 08:00 36.8 76 18 121/63 (82) 98 05/16/17 04:00 Room Air 05/16/17 03:14 36.5 59 17 113/64 (80) 98 Room Air 05/16/17 00:01 Room Air 05/16/17 00:00 36.4 60 17 104/69 (81) 98 Room Air Notes Mental Status: alert / awake / arousable, participated in evaluation Pt Amnestic to Procedure: Yes Nausea / Vomiting: adequately controlled Pain: adequately controlled Airway Patency, RR, SpO2: stable & adequate BP & HR: stable & adequate, see Notes Hydration State: stable & adequate Anesthetic Complications: no major complications apparent The patient briefly converted to NSR with both shocks but quickly reverted back to afib. He is otherwise awake and stable.
--- NOTE | 2017-05-16 12:40 | ECHOCARDIOGRAM REPORT ---
*NOTICE TO RECEIVING DEMOCRAT AGENCY This information is strictly Confidential and protected under [place] law. [place] law prohibits you from making any further disclosure of this information unless further disclosure is expressly permitted by the written consent of the person to whom it pertains or is authorized by law. A general authorization for the release of medical or other information is not sufficient for this purpose. Hospital accepts no responsibility if the information is made available to any other person, INCLUDING THE PATIENT. Interpretation Summary * Name: MARISSA JUDGE Study Date: 05/16/2017 09:10 AM BP: 121/63 mmHg * Patient Location: C.2T\S\S239\S\2 HR: 79 * : 1960 (M/d/yyyy) Gender: Male Height: 66 in * Age: 57 yrs Ethnicity: CA Weight: 197 lb * Ordering Physician: Ortiz Olivas * Referring Physician: Self, Referred * Performed By: Lesley Hidalgo RCS * * Reason For Study: HX CARDIOMYOPATHY / A-FIB * BSA: 2.0 m2 * -- Conclusions -- * 1. Normal LV size and wall thickness. * 2. Mild LV dysfunction. LVEF 45-50%. No regional wall motion abnormalities. * 3. Borderline RV dilation with normal RV function. * 4. Aortic valve sclerosis without stenosis. * 5. Compared with prior study on 12/21/2016: LV function has improved. Procedure Details * A complete two-dimensional transthoracic echocardiogram was performed (2D, M-mode, Doppler and color flow Doppler). * A contrast injection of Definity was performed to improve assessment of LV function. * Contrast was injected into an intravenous site in the right arm. * One vial of Definity ultrasound contrast was diluted in normal saline to a total volume of 10 ml. A total of '2' ml of solution was administered during imaging. * Lot # [id number] of Definity utilized for procedure. * Expiration date MAY 05. * The attending nurse who injected the contrast agent was PJ FAY, RN. Left Ventricle * The left ventricle is grossly normal size. * There is normal left ventricular wall thickness. * Ejection Fraction = 45-50%. * No regional wall motion abnormalities noted. Right Ventricle * Borderline right ventricular enlargement. * The right ventricular systolic function is normal as assessed by tricuspid annular plane systolic excursion (TAPSE) (normal >1.5 cm). Atria * The left atrium is mildly dilated. * The right atrium is moderately dilated. * No ASD detected; PFO is not assessed. Mitral Valve * The mitral valve leaflets appear normal. There is no evidence of stenosis, fluttering, or prolapse. * There is no mitral valve stenosis. * There is trace mitral regurgitation. Tricuspid Valve * The tricuspid valve is not well visualized, but is grossly normal. * There is trace tricuspid regurgitation. Aortic Valve * Aortic valve sclerosis mild, without significant aortic valvular stenosis. * No hemodynamically significant valvular aortic stenosis. * There is no significant aortic regurgitation. Pulmonic Valve * The pulmonic valve is not well visualized. Great Vessels * The aortic root and proximal ascending aorta are normal sized. Pericardium/Pleural * There is no pericardial effusion. Great Vessels * IVC > 2.1, <50% change with respiration. Est RA 8mmHg. MMode 2D Measurements and Calculations IVSd 1.0 cm IVSs 1.5 cm LVIDd 5.0 cm LVIDs 3.7 cm LVPWd 0.92 cm LVPWs 1.4 cm IVS/LVPW 1.1 FS 26.5 % EDV(Teich) 119.9 ml ESV(Teich) 58.0 ml EF(Teich) 51.6 % EDV(cubed) 127.3 ml ESV(cubed) 50.5 ml EF(cubed) 60.3 % % IVS thick 43.2 % % LVPW thick 47.3 % LV mass(C)d 177.4 grams LV mass(C)dI 89.2 grams/m\S\2 LV mass(C)s 189.4 grams LV mass(C)sI 95.3 grams/m\S\2 SV(Teich) 61.9 ml SI(Teich) 31.2 ml/m\S\2 SV(cubed) 76.8 ml SI(cubed) 38.6 ml/m\S\2 LVOT diam 2.0 cm LVOT area 3.1 cm\S\2 LVAd ap4 25.7 cm\S\2 LVLd ap4 7.3 cm EDV(MOD-sp4) 74.1 ml EDV(sp4-el) 77.1 ml LVAs ap4 20.2 cm\S\2 LVLs ap4 6.8 cm ESV(MOD-sp4) 48.7 ml ESV(sp4-el) 50.5 ml EF(MOD-sp4) 34.3 % EF(sp4-el) 34.5 % LVAd ap2 21.5 cm\S\2 LVLd ap2 7.0 cm EDV(MOD-sp2) 55.2 ml EDV(sp2-el) 55.6 ml LVAs ap2 14.1 cm\S\2 LVLs ap2 6.4 cm ESV(MOD-sp2) 25.9 ml ESV(sp2-el) 26.4 ml EF(MOD-sp2) 53.1 % EF(sp2-el) 52.5 % LVLd %diff -3.30 % EDV(MOD-bp) 64.9 ml LVLs %diff -7.04 % ESV(MOD-bp) 36.7 ml EF(MOD-bp) 43.5 % SV(MOD-sp4) 25.4 ml SI(MOD-sp4) 12.8 ml/m\S\2 SV(MOD-sp2) 29.3 ml SI(MOD-sp2) 14.8 ml/m\S\2 SV(MOD-bp) 28.2 ml SI(MOD-bp) 14.2 ml/m\S\2 SV(sp4-el) 26.6 ml SI(sp4-el) 13.4 ml/m\S\2 SV(sp2-el) 29.2 ml SI(sp2-el) 14.7 ml/m\S\2 Doppler Measurements and Calculations MV E max atul 94.4 cm/sec MV P1/2t max atul 93.2 cm/sec MV P1/2t 73.2 msec MVA(P1/2t) 3.0 cm\S\2 MV dec slope 372.7 cm/sec\S\2 MV dec time 0.22 sec Ao V2 max 138.0 cm/sec Ao max PG 7.6 mmHg Ao max PG (full) 6.2 mmHg ANKITA(V,A) 1.3 cm\S\2 ANKITA(V,D) 1.3 cm\S\2 LV V1 max PG 1.4 mmHg LV V1 max 59.5 cm/sec TR max atul 231.7 cm/sec
--- NOTE | 2017-05-16 15:11 | Discharge Instructions ---
Discharge Instructions Date of Service May 16, 2017. Admission Reason for Admission: A-Fib, Sob Discharge Discharge Diagnosis / Problem: A. Fib Discharge Goals Goal(s): Decrease discomfort Activity Recommendations Activity Limitations: resume your previous activity . Instructions / Follow-Up Instructions / Follow-Up Followup in 4 weeks. Current Hospital Diet Patient's current hospital diet: AHA Diet (Heart Healthy) Discharge Diet Recommended Diet: AHA Diet (Heart Healthy) Pending Studies Studies pending at discharge: no Medical Emergencies . Who to Call and When: Medical Emergencies: If at any time you feel your situation is an emergency, please call 911 immediately. . Non-Emergent Contact Non-Emergency issues call your: Primary Care Provider Call Non-Emergent contact if: you have any medication questions (or if Shortness of breath worsens) . . "Provider Documentation" section prepared by Jose M Meng. . VTE Core Measure Inpt VTE Proph given/why not?: Other Anticoagulation (xarelto)
--- NOTE | 2017-05-16 15:12 | Discharge Summary ---
Discharge Summary Date of Service May 16, 2017. Discharge Summary Admission Date: May 15, 2017 at 17:09 Discharge Date: May 16, 2017 Discharge Disposition: Home Principal Diagnosis: Recurrent A. Fib Procedures: Cardioversion The patient was brought to the laboratory being NPO after midnight and was identified in the laboratory, connected to the recording apparatus including electrocardiographic monitoring, noninvasive blood pressure monitoring and pulse oximetry. Anteroposterior patch electrodes were placed. The patient was anesthetized by the anesthesia department. Once adequate anesthesia was obtained a synchronized biphasic shock was delivered using 200 J with conversion to a sinus rhythm. He reverted back to atrial fibrillation after only several seconds, therefore another synchronized biphasic shock was delivered at 200 J with conversion to sinus rhythm once again. Once again however he reverted back to atrial fibrillation after a number of seconds, less than 1 minute. Since the shocks were successful in converting the rhythm but he did not maintain SR no further cardioversions were performed. The patient awoke from the anesthetic without sequela, will be observed briefly and then returned to his room. Consultations: Cardiology #1. Recurrent atrial fibrillation: Based on symptoms it is likely his atrial fibrillation occurred about 4 days ago, however his symptoms are not very noticeable to him and therefore the precise time is not clear. He has been anticoagulated however therefore he is protected from left atrial thrombus. I think it would be reasonable to convert his rhythm. I discussed the indications , procedure, risks and alternatives and he understands and agrees to proceed. Consent obtained. At this point were waiting for anesthesia to get a time, hopefully today. #2. Cardiomyopathy: He had a significant cardiac myopathy at the time of his presentation, he does not have much the way of heart failure symptoms however before performing cardioversion I would like to assess his left ventricular function. I'm therefore going to get a limited echo to look at his left ventricular function prior to cardioversion. #3. CVA: At the time of his initial presentation he was observed to have prior CVAs, presumably from atrial fibrillation although cryptogenic, he presented with neurologic symptoms. He has had no further neurologic symptoms on anticoagulation. Thank you for allowing me to participate in his care. Medication Reconciliation Continued Medications: Aspirin (Aspirin Ec) 81 Mg Tab 81 MG PO DAILY Atorvastatin (Lipitor) 40 Mg Tab 40 MG PO QAM, #30 TAB Lisinopril (Lisinopril) 2.5 Mg Tab 2.5 MG PO QAM, #30 TAB Metoprolol Succinate (Metoprolol Succinate ER) 50 Mg Tabcr 50 MG PO DAILY, #30 TABS Rivaroxaban (Xarelto) 20 Mg Tab 20 MG PO QDD, #30 TAB Spironolactone (Spironolactone) 25 Mg Tab 25 MG PO QAM, #30 TAB Discharge Exam Review of Systems: Constitutional: No fever, No chills Eyes: No worsening of vision ENT: No hearing loss Respiratory: No cough, No sputum Cardiovascular: No chest pain, No orthopnea Abdomen: No pain Musculoskeletal: No joint pain Neurologic: No memory loss Psychiatric: No depression symptoms Endocrine: No fatigue Hematologic / Lymphatic: No abnormal bleeding/bruising Integumentary: No rash Physical Exam: General Appearance: WD/WN, no apparent distress Neck: supple, no adenopathy Respiratory/Chest: chest non-tender, lungs clear, normal breath sounds Cardiovascular: no edema, + irregularly irregular Abdomen / GI: normal bowel sounds, non tender, soft Extremities: normal inspection Skin: normal color, warm/dry Lymphatic: no adenopathy Hospital Course Patient is a pleasant 57 y/o male, with PMHx of paroxysmal a.fib, cardiomyopathy w/ EF of 30-35%, CVA, HLD, HTN, who presented to the ED because of SOB x4 days. SOB, a.fib w/ rates controlled: - Admited to tele for cardiac monitoring - O2 protocol -Patient improved and was no longer symptomatic on discharge. - Trend cardiac enzymes- negative x 3 - EKG w/out acute ischemic changes; - Continue ASA 81 mg daily, Metoprolol 50 mg daily, Xarelto 25 mg daily - CXR w/out acute cardiopulmonary processes - Patient was cardioverted but Sinus rhythm only lasted for 10 seconds. -Will continue same meds as outpatient. - Consult cardiology, appreciate recommendations Paroxysmal a.fib, cardiomyopathy w/ EF of 30-35%, CVA, HLD, HTN- follows w/ Kip Manny: - ASA 81 mg daily, Metoprolol 50 mg daily, Xarelto 25 mg daily, Lisinopril 2.5 mg daily, Aldactone 25 mg daily DVT prophylaxis: Xarelto Code status: LEVEL I, FULL Total Time Spent: Greater than 30 minutes This includes examination of the patient, discharge planning, medication reconciliation, and communication with other providers. Discharge Instructions Please refer to the electronic Patient Visit Report (Discharge Instructions) for additional information. Follow-Up As stated in discharge instructions Additional Copies To Whitney Sutherland PA-C
== END 2017-05-16 15:40 | disposition home or self-care (01) ==
LOC: C.EDB 12:56 → ENRESERV 16:14 → C.2T 17:09
PROVIDERS: ADMIT Internal Medicine; ATTEND Internal Medicine
DX: I48.0 Paroxysmal atrial fibrillation (principal); I48.3 Typical atrial flutter; I42.9 Cardiomyopathy, unspecified; I10 Essential (primary) hypertension; E78.5 Hyperlipidemia, unspecified; Z79.899 Other long term (current) drug therapy; Z79.82 Long term (current) use of aspirin; Z79.01 Long term (current) use of anticoagulants; Z86.73 Personal history of transient ischemic attack (TIA), and cerebral infarction without residual deficits